=== PATIENT | female | born 1970 | race Asian ===

== ENCOUNTER 2024-04-04 13:11 | Outpatient (AMB) | payer OTHER, SELFPAY ==
--- NOTE | 2024-04-04 13:32 | HO.SPINEOV ---
Vital Signs 04/04/24 13:33 Height 5 ft 1 in Weight 144 lb BMI 27.2 Intake Visit Reasons: Neck pain Intake Note: Ms. Hernandez is here today c/o neck pain that radiates to the arms. Jewel Diameter Gauger Required: No Allergies erythromycin base Allergy (Mild, Verified 04/04/24 13:34) gastritis Physical Exam Vital Signs: BMI result Body Mass Index 27.2 Assessment & Plan Assessment & Plan (1) Cervical radiculopathy due to degenerative joint disease of spine: Code(s): M47.22 - Other spondylosis with radiculopathy, cervical region Category: Medical (2) Lumbar degenerative disc disease: Code(s): M51.369 - Other intervertebral disc degeneration, lumbar region without mention of lumbar back pain or lower extremity pain Category: Medical Plan Dear colleague Thank you for referring Priti Hernandez to the office today with a chief complaint of left-sided neck pain and arm pain and chronic low back pain with bilateral leg pain, right more than left HPI: This 53-year-old female has a 1 year history of severe neck pain mostly towards the left side. Pain wraps around her left chest and shoulder blade. Intermittently it will go down her arm all the way into her hands into the 4th and 5th digit. Recently she noted difficulty with opening bottles and at night she is walking up with numbness in her fingers. She does have a history of carpal tunnel release. She tried physical therapy chiropractic therapy injections without success. In fact, she is still doing physical therapy but it only has a very short lasting result. A 2nd complaint is severe chronic low back pain that radiates down both legs with the right side is more affected than the left side. The pain is severe with standing and sitting. 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 She also had tried multiple injections in the lower back without success. The pain has caused depressive symptoms as expected PMH: Hypertension, asthma, depression, gastric bypass, for C-sections, appendectomy, carpal tunnel release, breast repair Medications: Losartan, Advair, Lexapro, Wellbutrin, amlodipine, simvastatin, triamcinolone, famotidine, Singulair, ibuprofen, gabapentin Allergies: Erythromycin Social history: Currently not working. Nonsmoker. Physical Exam: Pleasant female. Spurling test provide pain radiating down both sides of her neck. Tinel over risk guess tingling in the middle finger. Motor exam shows mild weakness of the biceps grade 4 +out of 5 and a grade 4/5 bank boss weakness bilaterally. No pathological reflexes. Radiological Studies: MRI of the cervical and lumbar spine done at [facility] shows severe cervical degenerative disc disease C5-6 and C6-7 with severe left C6 foraminal stenosis due to disc osteophyte and severe bilateral C7 foraminal stenosis due to osteophyte formation. In addition there is a cervical kyphosis. The lumbar spine shows severe lumbar degenerative disc disease L4-5 with a near collapse of the disc space and Modic changes. In addition there is a bilateral L4 foraminal stenosis. Impression/Plan: This patient is suffering from a cervical radiculopathy for which I recommended an anterior diskectomy and fusion C5-6 and C6-7. There is a remote chance that she is also suffering from carpal tunnel syndrome but this will not interfere with a surgical indication. We briefly discussed an artificial disc these levels but looking at the deformity in the moderate degenerative changes I think she is not a good candidate. As far as a lumbar spine concerns, I offered her an oblique lumbar interbody fusion L4-5 to treat her chronic low back pain radiating down both legs. She wants to proceed. She scheduled for June to undergo 1st the two-level cervical fusion followed by a lumbar fusion 3 weeks later. Thank you for allowing me to participate in your patients care. total time spent was 50 minutes in counseling ,coordination of plan, personal review of imaging, surgical decision making and subsequent plan Dilan Albrecht MD, PhD Spine Fellowship Trained Neurosurgeon Director, [facility] Coding Level of Care Code New Pt Level 4 (44589) Diagnoses Cervical radiculopathy due to degenerative joint disease of spine M47.22 Lumbar degenerative disc disease M51.369
[2024-04-04 13:33] VITALS: BMI 27.2
== END 2024-04-04 15:03 | disposition home or self-care (01) ==
PROVIDERS: Referring Provider Physical Medicine & Rehabilitation; Visit Provider Neurological Surgery
DX: M47.22 Other spondylosis with radiculopathy, cervical region (principal); M51.369 Other intervertebral disc degeneration, lumbar region without mention of lumbar back pain or lower extremity pain
CPT/HCPCS: 99204

== ENCOUNTER → 2024-04-04 13:11 | Outpatient (BNVA) | payer OTHER, SELFPAY | PROVIDERS: Referring Provider Physical Medicine & Rehabilitation; Visit Provider Neurological Surgery | DX: M47.22 Other spondylosis with radiculopathy, cervical region (principal); M51.369 Other intervertebral disc degeneration, lumbar region without mention of lumbar back pain or lower extremity pain | CPT/HCPCS: 99202 ==

== ENCOUNTER 2024-05-13 15:41 | Outpatient (REF) | payer OTHER, SELFPAY ==
--- OUTSIDE RECORDS SUMMARY | 2024-05-13 16:28 | XMS_ITS | Clinical Summary ---
Author Organization [facility] Address [address] [place] [id number] Care Team Providers Care Souvenir And Novelty Maker Name Role Phone Unavailable Primary Care Provider Unavailabl e Allergies Active Allergy Reactions Criticality Noted Date Comments Erythromycin Nausea Only 08/09/2020 Nickel 08/09/2020 Medications Medication Sig Dispensed Refills Start Date End Date Status escitalopram (LEXAPRO) 20 MG tablet Take 20 mg by mouth daily. 0 Active amLODIPine (NORVASC) tablet 2.5 mg Take 2.5 mg by mouth daily. 0 Active losartan (COZAAR) tablet 25 mg Take 25 mg by mouth daily. 0 Active hydroCHLOROthiazide (HYDRODIURIL) tablet 25 mg Take 25 mg by mouth daily. 0 Active fenofibrate (TRICOR) tablet 48 mg Take 48 mg by mouth daily. 0 Active simvastatin (ZOCOR) tablet 10 mg Take 10 mg by mouth every night at bedtime. 0 Active ibuprofen 600 MG tablet Take 600 mg by mouth every 6 (six) hours as needed for pain. 0 Active Acetaminophen 500 MG coapsule Take 1,000 mg by mouth every 6 (six) hours as needed for fever. 0 Active meloxicam (MOBIC) 7.5 MG tablet TAKE 1 TABLET NEEDED FOR PAIN, IF NEEDED CAN TAKE SECOND TABLET 12 HOURS AFTER. 60 tablet 1 02/10/2021 Active tiZANidine (ZANAFLEX) 4 MG tablet TAKE 1 TABLET BY MOUTH EVERY 6 HOURS NEEDED FOR MUSCLE SPASMS 60 tablet 0 06/08/2021 Active Active Problems Problem Noted Date Diagnosed Date Sacroiliac joint dysfunction 08/11/2020 Lumbar facet joint syndrome 08/11/2020 Social History Tobacco Use Types Packs/Day Years Used Date Smoking Tobacco: Never Smokeless Tobacco: Never Alcohol Use Standard Drinks/Week Comments Never 0 (1 standard drink = 0.6 oz pur e alcohol) Sex and Gender Information Value Date Recorded Sex Assigned at Not on file Gender Identity Not on file Sexual Orientation Not on file Job Start Date Occupation Industry Not on file Not on file Not on file Last Filed Vital Signs Vital Sign Reading Time Taken Comments Blood Pressure - - Pulse 85 08/11/2020 2:24 PM EDT Temperature - - Respiratory Rate - - Oxygen Saturation 98% 08/11/2020 2:24 PM EDT Inhaled Oxygen Concentration - - Weight 84.8 kg (187 lb) 08/09/2020 2:48 PM EDT Height 154.9 cm (5' 1 ) 08/09/2020 2:48 PM EDT Body Mass Index 35.33 08/09/2020 2:48 PM EDT Plan of Treatment Health Maintenance Due Date Last Done Comments Hepatitis B Vaccines (1 of 3 - 3-dose series) 1972 Hepatitis C Screening 1972 Depression Screening 1984 Preventative Health Evaluation 1990 DTap / Tdap / Td (1 - Tdap) 12/26/1991 Cervical Cancer Screening (P ap Smear) 1993 Colon Cancer Screening (Colonoscopy) 2017 Breast Cancer Screening (Mammogram) 2022 Shingrix-Zoster Vaccine (1 of 2) 2022 COVID-19 Vaccine (2 - 2023-2 5 season) 2023 04/30/2020 Influenza Vaccine (#1) 2023 Pneumococcal Vaccine Aged Out No long er eligible based on patient's age to complete this topic RSV Ped < 20 months Aged Out No longe r eligible based on patient's age to complete this topic
--- OUTSIDE RECORDS SUMMARY | 2024-05-13 16:28 | XMS_ITS | Encounter Summary ---
Author Organization [facility] Address [id number] [place] [id number] Care Team Providers Care Unit Receptionist Name Role Phone Maria Dolores Jones MD Primary Care Provider Reason for Visit * Consultation (Routine) - Authorized Specialty Diagnoses / Procedures Referred By Ganesh rea Referred To Contact Physical Therapy Diagnoses Bursitis of left shoulder Laz Lunsford, TED [address] [place] [address] [facility] Physical Therapy [address] [phone] Referral ID Status Reason Start Date Expiration Date Visits Requested Visits Authorized [id number] Authorized Specialty Services Required 01/16/2024 01/15/2025 16 16 Encounter Details Date Type Department Care Team (Late st Contact Info) Description 04/21/2024 8:00 AM EST Treatment [facility] [address] [phone] Kayce Walker PT Bursitis of left shoulder (Primary Dx); Upper back strain, subsequent encounter Social History Tobacco Use Types Packs/Day Years Used Date Smoking Tobacco: Never Smokeless Tobacco: Never Alcohol Use Standard Drinks/Week Comments Yes 0 (1 standard drink = 0.6 oz pur e alcohol) Sex and Gender Information Value Date Recorded Sex Assigned at Female 03/21/2023 3:09 PM EST Gender Identity Female 03/21/2023 3:09 PM EST Sexual Orientation Straight 02/26/2024 2: 42 PM EST Job Start Date Occupation Industry Not on file Not on file Not on file documented as of this encounter Progress Notes * Kayce Moskal, PT - 04/21/2024 8:00 AM EST [facility] - Outpatient PHYSICAL THERAPY DAILY TREATMENT NOTE - OP Date: 04/21/2024 Visit Number: [id number] Patient Name: Priti Hernandez : 1970 Age: 53 y.o. Gender: female Diagnosis: ICD-10-CM ICD-9-CM 1. Bursitis of left shoulder M75.52 726.10 2. Upper back strain, subsequent encounter S29.012D V58.89 847.1 Date of Onset/Surgery: 01/16/2024 Referring Provider: Laz Lunsford PA Insurance: Payor: [employer] / Plan: [employer] MEDICAID / Product Type: *No Product type* / Patient Identified by: Kayce Walker PT Language: Panamanian Medications: Current Outpatient Medications on File Prior to Visit Medication Sig Dispense Refill acetaminophen (TYLENOL) 500 mg tablet TAKE 1 TABLET BY MOUTH EVERY 6 HOURS NEEDED FOR MILD PAIN SCALE 1-3 albuterol HFA (PROAIR HFA ; PROVENTIL HFA ; VENTOLIN HFA) 90 mcg/actuation inhaler Inhale 2 Puffs into the lungs every 6 hours as needed for Cough, Wheezing or Shortness of Breath. amLODIPine (NORVASC) 5 mg tablet Take 1 tablet (5 mg total) by mouth 1 (one) time each day. buPROPion SR (WELLBUTRIN SR) 150 mg 12 hr tablet Take 1 tablet (150 mg total) by mouth 1 (one) timeeach day. [id number] ORAL Take by mouth. 2 tablets bid cyclobenzaprine (FLEXERIL) 5 mg tablet TAKE 1 TABLET BY MOUTH EVERY DAY AT BEDTIME escitalopram (LEXAPRO) 20 mg tablet TAKE 1 TABLET BY MOUTH EVERY DAY 90 tablet 0 estradiol (ESTRACE ORAL) Take daily famotidine (PEPCID) 20 mg tablet Take 1 tablet (20 mg total) by mouth 2 (two) times a day. fexofenadine (HEATHER) 180 mg tablet Take 1 tablet (180 mg total) by mouth 1 (one) time each day. fish oil/borage/flax/om3,6,9 1 (OMEGA 3-6-9 ORAL) Take by mouth. fluticasone propion-salmeteroL (ADVAIR HFA) 230-21 mcg/actuation inhaler Inhale 2 Puffs into the lungs 2 times daily. This medication has inhaler steroid: Rinse mouth with water and expectorate aftereach dose to prevent oral/esophageal candidiasis or fungal infection. gabapentin (NEURONTIN) 100 mg capsule Take 100mg in Am , 200mg at noon and 300mg at bedtime- per . inhalational spacing device (BreatheRite Valved MDI Chamber) inhaler 1 Each by Does not apply routeas needed for Other (with inhalers). inhaler, assist devices (E-Z SPACER MISC) USE NEEDED WITH INHALERS Lactobacillus rhamnosus GG (CULTURELLE ORAL) Take 1 Tablet by mouth daily levonorgestreL (MIRENA) 21 mcg/24 hr (8 yrs) 52 mg IUD 1 Each by Intrauterine route Once. (Patient not taking: Reported on 03/25/2024) losartan (COZAAR) 50 mg tablet Take 1 tablet (50 mg total) by mouth 2 (two) times a day. melatonin 3 mg tablet Take 1 Tablet by mouth at bedtime. meloxicam (MOBIC) 15 mg tablet TAKE 1 TABLET BY MOUTH EVERY DAY montelukast (SINGULAIR) 10 mg tablet Take 1 Tablet by mouth at bedtime. multivit-min/iron/folic acid/K (BARIATRIC MULTIVITAMINS ORAL) Take by mouth daily. pantoprazole (PROTONIX) 40 mg EC tablet Take 1 tablet (40 mg total) by mouth 1 (one) time each day. simvastatin (ZOCOR) 10 mg tablet Take 1 Tablet by mouth at bedtime. traZODone (DESYREL) 50 mg tablet Take 1 Tablet by mouth at bedtime. triamcinolone (NASACORT) 55 mcg nasal inhaler 55 mcg by Nasal route daily. No current facility-administered medications on file prior to visit. Allergies: is allergic to erythromycin, nickel, other, shellfish containing products, shrimp, and tizanidine. Fall risk: No Patient/Caregiver Goals: SUBJECTIVE Subjective Report: The patient reports her low back is sore today but with treatment symptoms have reduced for longer periods of time. Chart Reviewed: Yes Pain Low back: 4/10 achy pain OBJECTIVE TREATMENT INTERVENTION: Procedures: Manual Therapy interventions: Dry needling - direct with STIM to lumbar multifidi and bilateral QL x 5 min no charge STM to erector spinae, QL and lumbar multifidi ASSESSMENT/Response to Treatment Good The patient tolerated manual therapy interventions well with improved myofascial mobility and reduced trigger points. She was instructed to continue with core stability exercises at home and neck stretches. Patient Education: Education provided: Yes Education Provided To: Patient utilizing Explanation mode(s) of education Response to Education: Applied Knowledge PLAN POC Development/Review: No Change in the Plan of Care; Participants: Patient Total Treatment Time: 25 Therapeutic procedures: Manual Therapy Time Entry: 25 Documentation completed by Kayce Walker PT documented in this encounter Plan of Treatment Upcoming Encounters Date Type Department Care Team (Late st Contact Info) Description 05/19/2024 8:00 AM EST Treatment [facility] [address] [phone] Kayce Walker, PT 05/26/2024 8:00 AM EST Treatment [facility] [address] [phone] Kayce Walker, PT 06/09/2024 8:00 AM EST Treatment [facility] [address] [phone] Kayce Walker, PT 06/16/2024 8:00 AM EST Treatment [facility] [address] [phone] Kayce Walker, PT 07/08/2024 8:30 AM EDT Office Visit Pulmonolgy [facility] [address] [phone] Archana Woods NP [address] [address] 09/26/2024 11:10 AM EDT Appointment Radiology Department - [address] [phone] 10/29/2024 8:00 AM EDT Office Visit Gastroenterology - [place] 175 [facility] 175 [facility] [address] [place] [id number] Yamilka Brice, GEOFF 175 [facility] [address] [place] [address] documented as of this encounter Goals Goal Patient Goal Type Associated Problems Recent Progress Patient-Stated? Author <enter goal here> General No Kayce Walker, PT Note: Patient reports subjective decrease in L shoulder blade pain Slight trigger point to L rhomboid and L erector spinae Slight myofascial mobility restriction to bilateral erector spinae Normal PA thoracic joint mobility Patient is independent and compliant with HEP documented as of this encounter Visit Diagnoses Diagnosis Bursitis of left shoulder- Primary Upper back strain, subsequent encounter Encounter for screening mammogram for breast cancer documented in this encounter Care Teams Unit Receptionist Relationship Specialty Start Date End Date Maria Dolores Jones MD [address] [place] [address] [address] [place] [address] PCP - General Internal Medicine 12/13/21 documented as of this encounter
--- OUTSIDE RECORDS SUMMARY | 2024-05-13 16:28 | XMS_ITS | Clinical Summary ---
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 03/25/2024 7:05 PM [facility] Chloride 105 96 - 110 mmol/L LAB CHEMISTRY METHOD 03/25/2024 7:05 PM [facility] CO2 29 21 - 32 mmol/L LAB CHEMISTRY METHOD 03/25/2024 7:05 PM [facility] Anion Gap 6 3 - 11 LAB CHEMISTRY METHOD 03/25/2024 7:05 PM [facility] Glucose 117(H) 70 - 100 mg/dL LAB CHEMISTRY METHOD 03/25/2024 7:05 PM [facility] BUN 15 5 - 25 mg/dL LAB CHEMISTRY METHOD 03/25/2024 7:05 PM [facility] Creatinine 0.76 0.50 - 1.10 mg/dL LAB CHEMISTRY METHOD 03/25/2024 7:05 PM [facility] eGFR 95 >=60 mL/min/1. 73m2 LAB CHEMISTRY METHOD 03/25/2024 7:05 PM [facility] Comment:Calculation based on the??Chronic Kidney Disease Epidemiology Collaboration (CKD-EPI) equation refit??without adjustment for race. BUN/Creatinine Ratio 19.7 LAB CHEMISTRY METHOD 03/25/2024 7:05 PM [facility] Calcium 9.3 8.5 - 10.5 mg/dL LAB CHEMISTRY METHOD 03/25/2024 7:05 PM [facility] AST (SGOT) 19 10 - 42 unit/L LAB CHEMISTRY METHOD 03/25/2024 7:05 PM [facility] ALT (SGPT) 33 10 - 60 unit/L LAB CHEMISTRY METHOD 03/25/2024 7:05 PM [facility] Alkaline Phosphatase 73 42 - 121 unit/L LAB CHEMISTRY METHOD 03/25/2024 7:05 PM [facility] Total Protein 7.4 6.0 - 8.0 g/dL LAB CHEMISTRY METHOD 03/25/2024 7:05 PM [facility] Albumin 4.1 3.2 - 5.0 g/dL LAB CHEMISTRY METHOD 03/25/2024 7:05 PM EST [facility] Total Bilirubin 0.4 0.0 - 1.4 mg/dL LAB CHEMISTRY METHOD 03/25/2024 7:05 PM EST [facility] Blood Venous blood specimen / Unknown Venipuncture / Unknown 03/25/2024 11:54 AM EST 03/25/2024 11:54 AM EST Mike JEAN LAB BLOOD ORDERABLES [facility] [address] [place] [address], * Depression Screening (01/05/2024) Depression Screening abstracted Historical Provider [facility] * HIV Screening (12/06/2023) HIV Screening abstracted Historical Provider [facility] * Hepatitis C Screening (12/06/2023) Hepatitis C Screening abstracted Historical Provider [facility] * SCREENING MAMMOGRAPHY BI 2-VIEW BREAST INC CAD (09/18/2023 1:26 PM EDT) Anatomical Region Laterality Modality Radiographic Alysha ging 09/07/2022 1:08 PM EDT Narrative 09/19/2023 9:13 AM EDT This is a summary report. The complete report is available in the patient's medical record. If you cannot access the medical record, please contact the sending organization for a detailed fax or copy. History: Status post excisional biopsy of right breast calcifications on November 30, 2021, with benign results. Study: SCREENING MAMMOGRAPHY BI 2-VIEW BREAST INC CAD Technique: Bilateral full-field digital screening mammography is obtained and read in conjunction with computer aided detection. ??Tomosynthesis as well as 2D C-View imaging were obtained. ??Images with implants and displaced implant views were obtained. Comparison: Comparison made to multiple prior, most recent September 07, 2022, and most remote October 22, 2017. Breast composition: There are scattered areas of fibroglandular density. Right breast: Status post excisional biopsy. ??Retropectoral saline implant is intact. ??No suspicious masses, suspicious calcifications or other abnormalities are seen. Left breast: Retropectoral saline implant is intact. Interval coarsening of grouped calcifications in the upper outer quadrant anterior depth, which have similar appearance to the ones excised on the contralateral breast. ??No suspicious masses, suspicious calcifications or other abnormalities are seen. IMPRESSION: Impression: Bilateral breasts: Benign, no specific mammographic evidence of malignancy. ??Normal interval follow-up is recommended in 12 months. BI-RADS: Category 2: Benign Procedure Note Rachel Ward MD - 01/30/2024 This is a summary report. The complete report is available in thepatient's medical record. If you cannot access the medical record, pleasecontact the sending organization for a detailed fax or copy. History: [facility]. Study: SCREENING MAMMOGRAPHY BI 2-VIEW BREAST INC CAD Technique: Bilateral full-field digital screening mammography is obtainedand read in conjunction with computer aided detection. Tomosynthesis aswell as 2D C-View imaging were obtained. Images with implants anddisplaced implant views were obtained. Comparison: Comparison made to multiple prior, most recent September 07, 2022,and most remote October 22, 2017. Breast composition: There are scattered areas of fibroglandular density. Right breast: Status post excisional biopsy. Retropectoral saline implantis intact. No suspicious masses, suspicious calcifications or otherabnormalities are seen. Left breast: Retropectoral saline implant is intact. Interval coarseningof grouped calcifications in the upper outer quadrant anterior depth,which have similar appearance to the ones excised on the contralateralbreast. No suspicious masses, suspicious calcifications or otherabnormalities are seen. IMPRESSION: Impression: Bilateral breasts: Benign, no specific mammographic evidence ofmalignancy. Normal interval follow-up is recommended in 12 months. BI-RADS: Category 2: Benign Maria Dolores Jones MD IMG XR PROCEDU RES * Urine Albumin Creatinine Ratio (05/03/2023) Urine Albumin Creatinine Ratio abstracted Historical Provider MD ANTONIO MCCARTNEY E * Colonoscopy (07/13/2022) Colonoscopy no interpretation , abstracted Anatomical Region Laterality Modality Other Historical Provider MD ANOTNIO MCCARTNEY E * Cervical Cancer Screening: HPV (08/15/2021) Pathologist [facility] Cervical Cancer Screening: HPV no interpretation , abstracted Historical Provider MD ANTONIO Adler from Last 3 Months or Most Recently Relevant to Health Maintenance Care Teams [employer] Relationship Specialty Start Date End Date Maria Dolores Jones MD [address] [place] [id number] PCP - General Internal Medicine 12/13/21
--- OUTSIDE RECORDS SUMMARY | 2024-05-13 16:28 | XMS_ITS | Encounter Summary ---
Author Organization [facility] Address [address] [place] [phone] Care Team Providers Care Operator Catalyst Concentration Name Role Phone Maria Dolores Jones MD Primary Care Provider Reason for Visit * Consultation (Routine) - Authorized Specialty Diagnoses / Procedures Referred By Ganesh rea Referred To Contact Physical Therapy Diagnoses Bursitis of left shoulder Laz Lunsford, PA [address] [place] [address] [facility] Physical Therapy [address] [phone] Referral ID Status Reason Start Date Expiration Date Visits Requested Visits Authorized [id number] Authorized Specialty Services Required 01/16/2024 01/15/2025 16 16 Encounter Details Date Type Department Care Team (Late st Contact Info) Description 04/14/2024 8:00 AM EST Treatment [facility] [address] [phone] Kayce Walker PT Bursitis of left shoulder (Primary Dx) Social History Tobacco Use Types Packs/Day Years [...] of this encounter Progress Notes * Kayce Walker PT - 04/14/2024 8:00 AM EST [facility] - Outpatient PHYSICAL THERAPY DAILY TREATMENT NOTE - OP Date: 04/14/2024 Visit Number: [id number] Patient Name: Priti Hernandez : 1970 Age: 53 y.o. Gender: female Diagnosis: ICD-10-CM ICD-9-CM 1. Bursitis of left shoulder M75.52 726.10 Date of Onset/Surgery: 01/16/2024 Referring Provider: Laz Lunsford PA Insurance: Payor: [employer] PLAN / Plan: [employer] MEDICA[employer] / Product Type: *No Product type* / Patient Identified by: Kayce Walker PT Language: Iraqi Medications: Current Outpatient Medications on File Prior [...] total) by mouth 1 (one) timeeach day. [id number] ORAL Take by mouth. 2 tablets bid [...] patient reports her low back is sore today. She reports she has had pain in low back for the last few days. Chart Reviewed: Yes Pain neck: 4/10 achy pain OBJECTIVE TREATMENT INTERVENTION: Procedures: Manual Therapy interventions: Dry needling - direct with STIM to lumbar multifidi and bilateral QL x 5 min no charge STM to erector spinae, QL and lumbar multifidi ASSESSMENT/Response to Treatment Good The patient was instructed to continue with stretches at home. She continues to have myofascial restrictions that reduced with manual therapy interventions. She had improved mobility following manual therapy interventions. Patient Education: Education provided: Yes Education Provided To: Patient utilizing Explanation mode(s) of education Response to Education: Applied Knowledge PLAN POC Development/Review: No Change in the Plan of Care; Participants: Patient Total Treatment Time: 23 Therapeutic procedures: Manual Therapy Time Entry: 23 Documentation completed by Kayce Walker PT documented in this encounter Plan of Treatment Upcoming Encounters Date Type Department Care Team (Late st Contact Info) Description 05/19/2024 8:00 AM EST Treatment [facility] [address] [phone] Kayce Walker, PT 05/26/2024 8:00 AM EST Treatment [facility] [address] [phone] Kayce Walker, PT 06/09/2024 8:00 AM EST Treatment [facility] [address] [phone] Kayce Walker, PT 06/16/2024 8:00 AM EST Treatment [facility] [address] [phone] Kayce Walker, PT 07/08/2024 8:30 AM EDT Office Visit [place]monolgy [place] [address] [phone] Archana Woods NP [address] [address] 09/26/2024 11:10 AM EDT Appointment Radiology Department [address] [phone] 10/29/2024 8:00 AM EDT Office Visit Gastroenterology - [place] 175 [facility] 175 [facility] [address] [place] [address] Yamilka Brice NP 175 [facility] [address] [place] [address] documented as of this encounter Goals Goal [...] Diagnoses Diagnosis Bursitis of left shoulder- Primary Encounter for screening mammogram for breast cancer documented in this encounter Care Teams Operator Catalyst Concentration Relationship Specialty Start Date End Date Maria Dolores Jones MD [address] [place] [address] [address] [place] [address] PCP - General Internal Medicine 12/13/21 documented as of this encounter
--- OUTSIDE RECORDS SUMMARY | 2024-05-13 16:28 | XMS_ITS | Encounter Summary ---
Author Organization [facility] Address [address] [place] [address] Care Team Providers Care [employer] Name Role Phone Maria Dolores Jones MD Primary Care Provider Reason for Visit * Reason Comments GERD * Consultation (Routine) - Closed Specialty Diagnoses / Procedures Referred By Contact Referred To Contact Gastroenterology Diagnoses DM (diabetes mellitus), type 2 with neurological complications (CMS/HCC) Primary hypertension Hypercholesterolemia Moderate persistent asthma without complication Obstructive sleep apnea hypopnea, mild Gastroesophageal reflux disease, unspecified whether esophagitis present Mike Pagan PA [address] [place] [address] [facility] [address] [address] Referral ID Status Reason Start Date Expiration Date V isits Requested Visits Authorized [id number] Closed Specialty Services Required 03/25/2024 03/25/2025 1 1 Encounter Details Date Type Department Care Team ([facility] st Contact Info) Description 05/01/2024 8:00 AM EST Consult Gastroenterology - [place] 175 [place] [address] [address] Yamilka Brice NP [address] [address] Gastroesophageal reflux disease, unspecified whether esophagitis present (Primary Dx); Lactose intolerance; Bariatric surgery status Social History Tobacco Use Types Packs/Day Years [...] on file documented as of this encounter Last Filed Vital Signs Vital Sign Reading Time Taken Comments Blood Pressure 122/80 05/01/2024 8:03 AM EST Pulse 77 05/01/2024 8:03 AM EST Temperature - - Respiratory Rate - - Oxygen Saturation 98% 05/01/2024 8:03 AM EST Inhaled Oxygen Concentration - - Weight 67.1 kg (148 lb) 05/01/2024 8:03 AM EST Height 154.9 cm (5' 1 ) 05/01/2024 8:03 AM EST Body Mass Index 27.96 05/01/2024 8:03 AM EST documented in this encounter Progress Notes * Yamilka Brice NP - 05/01/2024 8:00 AM EST CONSULT REQUEST CHIEF COMPLAINT: GERD HPI: Priti Hernandez is a 53 y.o. old female whose PMH includes abnormal mammogram, adjustment disorder with mixed anxiety and depressed mood, allergic conjunctivitis of both eyes, carpal tunnel syndrome, type 2 diabetes mellitus, eating disorder, hypertension, hypercholesterolemia, migraines, moderate pe rsistent asthma, obstructive sleep apnea, posttraumatic headache, recurrent sinusitis, spina bifidaof lumbar region and umbilical hernia without obstruction and without gangrene was referred by Mike Pagan PA presents to the gastroenterology department today for evaluation of GERD. Patient reports historical gastric bypass surgery in February 2021 with a complication of intussusception afterwards. She notes since gastric bypass surgery, she has developed significant GERD that is well-managed with pantoprazole and famotidine. Sometimes, she experiences sharp pains when hungry-pain subsides with food. She occasionally experiences some dull pain after food. She does not eat heavy meals. She eats small meals throughout the day and uses protein supplements. She is lactose intolerant and uses Lactaid pills. She reports associated bloating and gassiness. She endorses she does not follow antireflux diet. During this visit, she denies fever or malaise, nausea, vomiting, dysphagia, odynophagia, hematemesis, abdominal pain, regurgitation, loss of appetite, unintentional weightloss, change in bowel habits from baseline, melena or hematochezia. She denies tobacco or marijuanause. She endorses occasional social alcohol use. No family history of colon cancer. Colonoscopy 07/03/2022: Internal hemorrhoids. The examination was otherwise normal. No specimens collected. No historical EGD. ROS: GENERAL: No malaise, significant weight loss or fever HEENT: No changes in hearing or vision, nose bleeds or swallowing problems NECK: No lumps, goiter, pain or significant neck swelling RESPIRATORY: No cough, wheezing or shortness of breath CARDIOVASCULAR: No chest pain GI: See HPI MUSCULOSKELETAL: Chronic back pain SKIN: No lesions, rash or itching PAST MEDICAL HISTORY: Patient Active Problem List Diagnosis Abnormal mammogram Adjustment disorder with mixed anxiety and depressed mood Allergic conjunctivitis of both eyes Allergic rhinitis Carpal tunnel syndrome DM (diabetes mellitus), type 2 with neurological complications (CMS/HCC) Eating disorder, unspecified Elevated glucose Facet arthropathy, lumbar Hypertension Hypercholesterolemia Migraines Moderate persistent asthma without complication Obstructive sleep apnea hypopnea, mild Palpitations Post-traumatic headache, not intractable Recurrent sinusitis Spina bifida of lumbar region (CMS/HCC) Sprain of lumbosacral joint or ligament Umbilical hernia without obstruction and without gangrene Hypertriglyceridemia Class 1 obesity due to excess calories with serious comorbidity and body mass index (BMI) of 30.0 to 30.9 in adult Lumbar facet joint syndrome Sacroiliac joint dysfunction PAST SURGICAL HISTORY: Past Surgical History: Procedure Laterality Date APPENDECTOMY 2000 PROCEDURE: HISTORICAL APPENDECTOMY BREAST SURGERY 2003 PROCEDURE: RI UNLISTED PROCEDURE BREAST; COMMENT: Augmentation CARPAL TUNNEL RELEASE Bilateral PROCEDURE: RI NEUROPLASTY &/TRANSPOS MEDIAN NRV CARPAL TUNNE SECTION 2005, 1998, 2012 PROCEDURE: HISTORICAL DELIVERY GASTRIC BYPASS 02/2021 PROCEDURE: RI GASTRIC RSTCV W/BYP W/SM INT RCNSTJ LIMIT ABSRPJ OTHER SURGICAL HISTORY 08/2015 PROCEDURE: HISTORY OTHER; COMMENT: abdominoplasty OTHER SURGICAL HISTORY Bilateral PROCEDURE: IMPLANT BREAST SILICONE/EQ; COMMENT: saline retropec OTHER SURGICAL HISTORY Right 11/30/2021 PROCEDURE: RI EXC BREAST LES PREOP PLMT RAD MARKER OPEN 1 LES; COMMENT: Right breast magnetic seed localized excision SOCIAL HISTORY: Social History Tobacco Use Smoking status: Never Smokeless tobacco: Never Substance Use Topics Alcohol use: Yes Drug use: No FAMILY HISTORY: Family History Problem Relation Name Age of Onset Hypertension Mother diabetes Diabetes Mother Depression Mother Leukemia Mother Hypertension Father DM, [place] age mid 50s, ESRD, Glaucoma, kidney transplant, depression Diabetes Father Other (Other: heart attack) Father Breast cancer Neg Hx Ovarian cancer Neg Hx Colon cancer Neg Hx MEDICATIONS: Outpatient Medications Marked as Taking for the 05/01/24 encounter (Consult) with Yamilka Brice NP Medication Sig Dispense Refill acetaminophen (TYLENOL) 500 [...] total) by mouth 1 (one) timeeach day. [id number] ORAL Take by mouth. 2 tablets bid cyclobenzaprine (FLEXERIL) 5 mg tablet TAKE 1 TABLET BY MOUTH EVERY DAY AT BEDTIME escitalopram (LEXAPRO) 20 mg tablet TAKE 1 TABLET BY MOUTH EVERY DAY 90 tablet 0 estradiol (ESTRACE ORAL) Take daily famotidine (PEPCID) 20 mg tablet TAKE 1 TABLET BY MOUTH TWICE A DAY 180 tablet 1 fexofenadine (HEATHER) 180 mg tablet Take 1 [...] mcg/24 hr (8 yrs) 52 mg IUD losartan (COZAAR) 50 mg tablet Take 1 [...] inhaler 55 mcg by Nasal route daily. ALLERGIES: Allergies Allergen Reactions Erythromycin GI intolerance Nickel Other Nickel-Other Reaction(s): Rash/Dermatitis Shellfish Containing Products Hives allergy Shrimp Other reaction(s): rash and swollen lips, Shrimp allergy ... Tizanidine Hallucinations PHYSICAL EXAM: Visit Vitals BP 122/80 Pulse 77 Ht 1.549 m (61 ) Wt 67.1 kg (148 lb) SpO2 98% BMI 27.96 kg/m?? OB Status Postmenopausal Smoking Status Never BSA 1.66 m?? APPEARANCE: Alert and in no acute distress EYES: Conjunctiva and sclera normal. MOUTH/THROAT: No erythema, exudates or lesions noted NECK: Neck supple, no adenopathy HEART: RRR with normal S1 and S2 LUNG: Clear to auscultation ABDOMEN: Soft non tender, no ascites, guarding, or rebound. RECTAL: Exam deferred NEURO: Awake, alert and oriented x 3 SKIN: Skin color, texture, turgor normal. LABS: No results found for: WBC , HGB , HCT , MCV , PLT Lab Results Component Value Date ALT 33 03/25/2024 AST 19 03/25/2024 ALKPHOS 73 03/25/2024 BILITOT 0.4 03/25/2024 IMAGING: No results found for this or any previous visit from the past 365 days. IMPRESSION: 1. Gastroesophageal reflux disease, unspecified whether esophagitis present 2. Lactose intolerance PLAN: Priti Hernandez is a 53 y.o. old female whose PMH includes abnormal mammogram, adjustment disorder with mixed anxiety and depressed mood, allergic conjunctivitis of both eyes, carpal tunnel syndrome, type 2 diabetes mellitus, eating disorder, hypertension, hypercholesterolemia, migraines, moderate pe rsistent asthma, obstructive sleep apnea, posttraumatic headache, recurrent sinusitis, spina bifidaof lumbar region and umbilical hernia without obstruction and without gangrene presents for evaluation of GERD. 1. GERD: Chronic since bariatric surgery in 2020. She takes pantoprazole and famotidine daily. This patient will greatly benefit from following antireflux diet which will include elimination of spicy, greasy/fatty, acidic/red sauces and caffeine especially coffee. Avoid late night eating and elevate head ofbed when sleeping. Continue taking PPI and famotidine as directed. She was encouraged to maximize lifestyle and dietary changes. I will re-evaluate in 6 months. If persistent GERD despite these changes, I will consider EGD. 2. Lactose intolerance: She was encouraged to follow a dairy free diet. May use Lactaid/dairy aid as needed. 3. Bariatric surgery status: History of bariatric surgery February 2021. Follow-up in 6 months. Patient agrees with the above plan and understands the need to follow up as indicated. Please note, this note may have been created in part by using Tapat[employer] dictation software, and therefore, it may contain typographical and/or grammatical errors inherent in a voice recognition software program I would like to thank Mike Pagan PA for the opportunity to partake in the patient's care. No orders of the defined types were placed in this encounter. AMB REFERRAL TO GASTROENTEROLOGY documented in this encounter Plan of Treatment Upcoming Encounters Date Type Department Care Team (Late st Contact Info) Description 05/19/2024 8:00 AM EST Treatment [facility] [address] [phone] Kayce Walker, PT 05/26/2024 8:00 AM EST Treatment [facility] [address] [phone] Kayce Walker, PT 06/09/2024 8:00 AM EST Treatment [facility] [address] [phone] Kayce Walker, PT 06/16/2024 8:00 AM EST Treatment [facility] [address] [phone] Kayce Walker, PT 07/08/2024 8:30 AM EDT Office Visit Pulmonolgy - [address] [phone] Archana Woods NP [address] [address] 09/26/2024 11:10 AM EDT Appointment Radiology Department [address] [phone] 10/29/2024 8:00 AM EDT Office Visit Gastroenterology - [place] [address] [phone] Yamilka Brice, GEOFF [address] [address] documented as of this encounter Goals Goal [...] as of this encounter Visit Diagnoses Diagnosis Gastroesophageal reflux disease, unspecified whether esophagitis present- Primary Lactose intolerance Intestinal disaccharidase deficiencies and disaccharide malabsorption Bariatric surgery status Encounter for screening mammogram for breast cancer documented in this encounter Orders Outpatient Referral Count Last Ordered Date Fir st Ordered Date AMB REFERRAL TO GASTROENTEROLOGY 05/01/19 25 documented in this encounter Care Teams [employer] Relationship Specialty Start Date End Date Maria Dolores Jones MD [address] [place] [address] PCP - General Internal Medicine 12/13/21 documented as of this encounter
--- OUTSIDE RECORDS SUMMARY | 2024-05-13 16:29 | XMS_ITS | Encounter Summary ---
Author Organization [facility] Address [address] [place] [phone] Care Team Providers Care Engineer Technician Name Role Phone Maria Dolores Jones MD Primary Care Provider Encounter Details Date Type Department Care Team (Latest Contact Info) Description 04/23/2024 8:22 AM EST - 04/23/2024 11:59 PM EST Hospital Encounter [facility] Paz [address] [place] [phone] Bilateral thumb pain Discharge Disposition: Home or Self Care Social History Tobacco Use Types Packs/Day Years [...] on file documented as of this encounter Medications at Time of Discharge Medication Sig Dispensed Refills Start Date End Date acetaminophen (TYLENOL) 500 mg tablet TAKE 1 TABLET BY MOUTH EVERY 6 HOURS NEEDED FOR MILD PAIN SCALE 1-3 03/07/2022 albuterol HFA (PROAIR HFA ; PROVENTIL HFA ; VENTOLIN HFA) 90 mcg/actuation inhaler Inhale 2 Puffs into the lungs every 6 hours as needed for Cough, Wheezing or Shortness of Breath. 10/29/2023 amLODIPine (NORVASC) 5 mg tablet Take 1 tablet (5 mg total) by mouth 1 (one) time each day. 07/05/2023 buPROPion SR (WELLBUTRIN SR) 150 mg 12 hr tablet Take 1 tablet (150 mg total) by mouth 1 (one) time each day. 05/14/2023 SDOZAOE-YWHBUGGLR-OZKL ORAL Take by mouth. 2 tablets bid cyclobenzaprine (FLEXERIL) 5 mg tablet TAKE 1 TABLET BY MOUTH EVERY DAY AT BEDTIME 09/19/2023 escitalopram (LEXAPRO) 20 mg tablet TAKE 1 TABLET BY MOUTH EVERY DAY 90 tablet 03/20/2024 estradiol (ESTRACE ORAL) Take daily famotidine (PEPCID) 20 mg tablet TAKE 1 TABLET BY MOUTH TWICE A DAY 180 tablet 1 04/22/2024 fexofenadine (HEATHER) 180 mg tablet Take 1 tablet (180 mg total) by mouth 1 (one) time each day. 01/31/2023 fish oil/borage/flax/om3,6, 9 1 (OMEGA 3-6-9 ORAL) Take by mouth. 02/03/2020 fluticasone propion-salmeteroL (ADVAIR HFA) 230-21 mcg/actuation inhaler Inhale 2 Puffs into the lungs 2 times daily. This medication has inhaler steroid: Rinse mouth with water and expectorate after each dose to prevent oral/esophageal candidiasis or fungal infection. 10/29/2023 gabapentin (NEURONTIN) 100 mg capsule Take 100mg in Am , 200mg at noon and 300mg at bedtime- per . 08/30/2023 inhalational spacing device (BreatheRite Valved MDI Chamber) inhaler 1 Each by Does not apply route as needed for Other (with inhalers). 04/26/2022 inhaler, assist devices (E-Z SPACER MISC) USE NEEDED WITH INHALERS 04/26/2022 Lactobacillus rhamnosus GG (CULTURELLE ORAL) Take 1 Tablet by mouth daily levonorgestreL (MIRENA) 21 mcg/24 hr (8 yrs) 52 mg IUD 09/02/2021 08/07/2026 losartan (COZAAR) 50 mg tablet Take 1 tablet (50 mg total) by mouth 2 (two) times a day. 07/05/2023 meloxicam (MOBIC) 15 mg tablet TAKE 1 TABLET BY MOUTH EVERY DAY 07/10/2023 montelukast (SINGULAIR) 10 mg tablet Take 1 Tablet by mouth at bedtime. 10/29/2023 multivit-min/iron/foli c acid/K (BARIATRIC MULTIVITAMINS ORAL) Take by mouth daily. pantoprazole (PROTONIX) 40 mg EC tablet Take 1 tablet (40 mg total) by mouth 1 (one) time each day. 05/14/2023 simvastatin (ZOCOR) 10 mg tablet Take 1 Tablet by mouth at bedtime. 07/05/2023 traZODone (DESYREL) 50 mg tablet Take 1 Tablet by mouth at bedtime. 07/05/2023 triamcinolone (NASACORT) 55 mcg nasal inhaler 55 mcg by Nasal route daily. 05/14/2023 melatonin 3 mg tablet Take 1 Tablet by mouth at bedtime. 10/29/2023 05/08/2024 documented as of this encounter Discharge Disposition Disposition Code Departure Means Destination Home or Self Care documented in this encounter Plan of Treatment Upcoming Encounters Date Type Department Care Team (Late st Contact Info) Description 05/19/2024 8:00 AM EST Treatment [facility] [address] [phone] Kayce Walker, PT 05/26/2024 8:00 AM EST Treatment [facility] [address] [phone] Kayce Walker, PT 06/09/2024 8:00 AM EST Treatment [facility] [address] [phone] Kayce Walker, PT 06/16/2024 8:00 AM EST Treatment [facility] [address] [phone] Kayce Walker, PT 07/08/2024 8:30 AM EDT [facility] [address] [phone] Archana Woods NP [address] [address] 09/26/2024 11:10 AM EDT Appointment Radiology Department - [address] [address] 10/29/2024 8:00 AM EDT Office Visit G[facility]ology - [place] 175 [facility] 175 [facility] [address] [place] [address] Yamilka Brice, GEOFF 175 [facility] 200 [place] [address] documented as of this encounter Goals Goal [...] with HEP documented as of this encounter Procedures Procedure Name Priority Date/Time Associated Diagnosis Comments XR FINGERS 2+ VIEWS BILATERAL Routine 04/23/2024 8:48 AM EST Bilateral thumb pain documented in this encounter Results * XR Fingers 2+ Views bilat (04/23/2024 [...] Signed Date: 04/23/2024 09:08 ET Workstation ID: [id number] Transcribed By: Self Edit Transcribed Date: 04/23/2024 [...] Signed Date: 04/23/2024 09:08 ET Workstation ID: [id number] Transcribed By: Self Edit Transcribed Date: 04/23/2024 09:06 ET Mike JEAN IMG XR PROCEDURES documented in this encounter Visit Diagnoses Diagnosis Bilateral thumb pain Encounter for screening mammogram for breast cancer documented in this encounter Care Teams Engineer Technician Relationship Specialty Start Date End Date Maria Dolores Jones MD [address] [place] [address] PCP - General Internal Medicine 12/13/21 documented as of this encounter
--- OUTSIDE RECORDS SUMMARY | 2024-05-13 16:29 | XMS_ITS | Encounter Summary ---
Author Organization [facility] Address [address] [place] [address] Care Team Providers Care Manager Subway Name Role Phone Maria Dolores Jones MD Primary Care Provider Encounter Details Date Type Department Care Team (Late Contact Info) Description 01/16/2024 7:30 AM EDT Hospital Encounter TH HISTORIC ENCOUNTERS EASTERN CONVERSION ONLY Laz Lunsford, [place] [address] [place] [address] Social History Tobacco Use Types Packs/Day Years [...] on file documented as of this encounter Plan of Treatment Upcoming Encounters Date Type Department Care Team (Late Contact Info) Description 05/19/2024 8:00 AM EST Treatment [facility] [address] [phone] Kayce Walker, PT 05/26/2024 8:00 AM EST Treatment [facility] [address] [phone] Kayce Walker, PT 06/09/2024 8:00 AM EST Treatment [facility] [address] [phone] Kayce Walker, PT 06/16/2024 8:00 AM EST Treatment [facility] [address] [phone] Kayce Walker, PT 07/08/2024 8:30 AM EDT Office Visit Pulmonolgy - [place] [address] [facility] [address] [place] [phone] Archana Woods, GEOFF [address] [address] 09/26/2024 11:10 AM EDT Appointment Radiology Department [address] [phone] 10/29/2024 8:00 AM EDT Office Visit G[facility]enter[facility] - [place] [address] [phone] Yamilka Brice, GEOFF [address] [address] documented as of this encounter Goals Goal [...] documented as of this encounter Visit Diagnoses Not on filedocumented in this encounter Care Teams Manager Subway Relationship Specialty Start Date End Date Maria Dolores Jones MD [address] [place] [address] PCP - General Internal Medicine 12/13/21 documented as of this encounter
--- OUTSIDE RECORDS SUMMARY | 2024-05-13 16:29 | XMS_ITS | Clinical Summary ---
Author Organization [facility] Address [address] [place] [address] Care Team Providers Care Developer Evangelist Name Role Phone Unavailable Primary Care Provider Unavailabl e Source Comments PLEASE NOTE, if this patient is a minor, it may be UNLAWFUL to discuss sensitive information that is contained in these records (such as FAMILY PLANNING, MENTAL HEALTH or SUBSTANCE ABUSE) with the minor patient's parent or other person without the patient's specific authorization.[facility] Immunizations Name Administration Dates Next Due Moderna COVID-19 Vaccine, re d cap blue label, 12+ Primary Series 04/30/2020 Social History Tobacco Use Types Packs/Day Years Used Date Smoking Tobacco: Never Assessed Social Connections Answer Date Recorded Social Connections and Isolation 0 05/16/2023 Financial Resource Strain Answer Date R ecorded Financial Resource Strain 0 2023 Stress Answer Date Recorded Stress 0 05/16/2023 Physical Activity Answer Date Recorded Physical Activity 0 05/16/2023 Food Insecurity Answer Date Recorded Food 0 05/16/2023 Transportation Needs Answer Date Record ed Transportation 0 05/16/2023 Housing Stability Answer Date Recorded Housing 0 05/16/2023 Safety and Environment Answer Date Lb rded Safety 0 05/16/2023 Utilities Answer Date Recorded Utilities 0 05/16/2023 Employment Answer Date Recorded Employment 0 05/16/2023 Comments Unknown Sex and Gender Information Value Date Recorded Sex Assigned at Not on file Legal Sex Female 7:15 AM PST Gender Identity Not on file Sexual Orientation Not on file Plan of Treatment Not on file
--- OUTSIDE RECORDS SUMMARY | 2024-05-13 16:29 | XMS_ITS | Encounter Summary ---
Author Organization [facility] Address [address] [place] [phone] Care Team Providers Care Animation Producer Name Role Phone Maria Dolores Jones MD Primary Care Provider Reason for Visit * Consultation (Routine) - Authorized Specialty Diagnoses / Procedures Referred By Ganesh rea Referred To Contact Physical Therapy Diagnoses Bursitis of left shoulder Laz Lunsford, [place] [address] [place] [address] [facility] Therapy [address] [phone] Referral ID Status Reason Start Date Expiration Date Visits Requested Visits Authorized [id number] Authorized Specialty Services Required 01/16/2024 01/15/2025 16 16 Encounter Details Date Type Department Care Team (Late st Contact Info) Description 05/05/2024 8:00 AM EST Treatment [facility] [address] [phone] Kayce Walker PT Bursitis of [...] Progress Notes * Kayce Walker PT - 05/05/2024 8:00 AM EST [facility] - Outpatient PHYSICAL THERAPY DAILY TREATMENT NOTE - OP Date: 05/05/2024 Visit Number: [id number] Patient Name: Priti Hernandez : 1970 Age: 53 y.o. Gender: female Diagnosis: ICD-10-CM ICD-9-CM 1. Bursitis of left shoulder M75.52 726.10 Date of Onset/Surgery: 01/16/2024 Referring Provider: Laz Lunsford PA Insurance: Payor: [employer] PLAN / Plan: [place] MEDICAID / Product Type: *No Product type* / Patient Identified by: Kayce Walker PT Language: Speaks and understands Sami as preferred language with no test deskman required Medications: Current Outpatient Medications on File Prior [...] total) by mouth 1 (one) timeeach day. [id number] ORAL Take by mouth. 2 tablets bid [...] risk: No Patient/Caregiver Goals: SUBJECTIVE Subjective Report: Patient reports she has been sick for the last 2 weeks and reports her back is feeling very sore and tight today. Chart Reviewed: Yes Pain Left neck/shoulder: 5/10 achy pain TREATMENT INTERVENTION: Procedures: Manual therapy interventions Dry needling (informed consent) to bilateral erector spinae and QL - no charge x 5 min STM to erector spinae and QL bilaterally ASSESSMENT/Response to Treatment Good The patient tolerated manual therapy interventions well with minimal complaints of discomfort in her low back. She had reduced myofascial restrictions following manual therapy interventions. Patient Education: Education Provided To: Patient utilizing Explanation and Demonstration mode(s) of education Response to Education: Applied Knowledge PLAN POC Development/Review: No Change in the Plan of Care; Participants: Patient Total Treatment Time: 25 Therapeutic procedures: Manual Therapy Time Entry: 25 Documentation completed by Kayce Walker PT documented in this encounter Plan of Treatment Upcoming Encounters Date Type Department Care Team (Late st Contact Info) Description 05/19/2024 8:00 AM EST Treatment [facility] [address] [phone] Kayce Walker, PT 05/26/2024 8:00 AM EST Treatment [facility] [address] [phone] Kayce Walker, PT 06/09/2024 8:00 AM EST Treatment [facility] [address] [phone] Kayce Walker, PT 06/16/2024 8:00 AM EST Treatment [facility] [address] [phone] Kayce Walker, PT 07/08/2024 8:30 AM EDT Office Visit Pulmonolgy - [place] [address] [phone] Archana Woods NP [address] [address] 09/26/2024 11:10 AM EDT Appointment Radiology Department [address] [phone] 10/29/2024 8:00 AM EDT Office Visit Gastroenterology - [place] 175 [facility] [address] [phone] Yamilka Brice, GEOFF 175 [facility] [address] [place] [address] documented as of this encounter Goals Goal [...] cancer documented in this encounter Care Teams Animation Producer Relationship Specialty Start Date End Date Maria Dolores Jones MD [address] [place] [address] [address] [place] [address] PCP - General Internal Medicine 12/13/21 documented as of this encounter
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
== END 2024-05-13 15:42 | disposition home or self-care (01) ==
LOC: HO.HOSX 15:41
PROVIDERS: Visit Provider Physician Assistant
DX: Z13.89 Encounter for screening for other disorder (principal)

== ENCOUNTER → 2024-05-15 10:51 | Outpatient (BNV) | payer OTHER, SELFPAY | PROVIDERS: Visit Provider Radiology Diagnostic Radiology | DX: M51.369 Other intervertebral disc degeneration, lumbar region without mention of lumbar back pain or lower extremity pain (principal) | CPT/HCPCS: 72110 ==

== ENCOUNTER 2024-05-15 15:41 | Outpatient (REF) | payer OTHER, SELFPAY ==
--- NOTE | ~2024-05-15 | XR_ITS ---
CLINICAL HISTORY: M51.369 - Other intervertebral disc degeneration, lumbar region without ... Exam: AP, lateral, flexion lateral, and extension lateral views of the lumbar spine. Comparison: None. Findings: Minimal to mild convex left mid lumbar curvature. Neutral lateral view demonstrates anatomic alignment. No abnormal motion seen on flexion or extension. Severe disc space narrowing at L4-5 with discogenic sclerosis, osteophytic ridging, and vacuum phenomenon. Mild degenerative disc disease at L3-4 with moderate degenerative disc disease at L5-S1. Moderate facet joint degenerative change from L3-4 inferiorly. Impression: Degenerative changes as above without acute fracture or abnormal motion. This document has been electronically signed by: Lionel Colby MD on 05/16/2024 17:09:52
--- OUTSIDE RECORDS SUMMARY | 2024-05-15 14:33 | XMS_ITS | Clinical Summary ---
Author Organization 175 [facility] Address 175 [place] [address] Phone Care Team Providers Care Fans Clerk Name Role Phone Maria Dolores Jones MD [...] Assessment & Plan: Sent CPAP 6 to [facility](12/01/2022) Umbilical hernia without obstruction and without gangrene 03/06/2017 Adjustment disorder with mixed anxiety and depre ssed mood 05/18/2015 Overview (01/22/2024): Rufino Marc Palpitations 08/05/2013 Overview (01/22/2024): [facility] Cardiology, 07/28/2013: NSR 87-113 BPM with no atrial or ventricular ectopy, rare PACs, few Atrial Pairs, rare PVCs, no significant pauses. Diary with one entry of palpitations and multiple enteries of SOB. Encounters Date Type Department Care Team Description 05/08/2024 8:00 AM EST Consult Orthopedic Surgery - [place] [address] [facility] [address] [place] [address] Delma Miller PA Arthritis of carpometacarpal (CMC) joint of both thumbs (Primary Dx); Bilateral thumb pain 05/05/2024 8:00 AM EST Treatment [facility] Outpatient Rehabilitation - [place] [address] [facility] [address] [place] [address] Kayce Walker PT Bursitis of left shoulder (Primary Dx) 05/01/2024 8:00 AM EST Consult Gastroenterology - [place] 175 [facility] [address] [facility] [address] [place] [address] Yamilka Brice NP Gastroesophageal reflux disease, unspecified whether esophagitis present (Primary Dx); Lactose intolerance; Bariatric surgery status 04/23/2024 8:22 AM EST - 04/23/2024 11:59 PM EST Hospital Encounter Xr - [place] [address] [place] [phone] Bilateral thumb pain Discharge Disposition: Home or Self Care 04/21/2024 8:00 AM EST Treatment [address] [phone] Kayce Walker, PT Bursitis of left shoulder (Primary Dx); Upper back strain, subsequent encounter 04/14/2024 8:00 AM EST Treatment [address] [phone] Kayce Walker, PT Bursitis of left shoulder (Primary Dx) 04/07/2024 8:00 AM EST Treatment [address] [phone] Kayce Walker, PT Bursitis of left shoulder 03/25/2024 11:00 AM EST Office Visit Adult Medicine [address] [phone] Mike Pagan PA Bilateral thumb pain (Primary Dx); Fall, initial encounter; DM (diabetes mellitus), type 2 with neurological complications ([facility]); Primary hypertension; Hypercholesterolemia; Chronic neck pain; Moderate persistent asthma without complication; Obstructive sleep apnea hypopnea, mild; Gastroesophageal reflux disease, unspecified whether esophagitis present 03/18/2024 7:30 AM EST Treatment [address] [phone] Kayce Walker, PT Upper back strain, subsequent encounter (Primary Dx) 03/04/2024 10:00 AM EST Treatment [address] [phone] Kayce Walker, PT Upper back strain, subsequent encounter (Primary Dx) 02/26/2024 7:30 AM EST Treatment [address] [phone] Kayce Walker, PT Upper back strain, subsequent [...] COMMENT: abdominoplasty CARPAL TUNNEL RELEASE Bilateral PROCEDURE: [place] NEUROPLASTY &/TRANSPOS MEDIAN NRV CARPAL TUNNE GASTRIC BYPASS 02/2021 PROCEDURE: IL GASTRIC RSTCV W/BYP W/SM INT RCNSTJ LIMIT ABSRPJ OTHER SURGICAL HISTORY Bilateral PROCEDURE: IMPLANT BREAST SILICONE/EQ; COMMENT: saline retropec BREAST SURGERY 2003 PROCEDURE: IL UNLISTED PROCEDURE BREAST; COMMENT: Augmentation OTHER SURGICAL HISTORY 11/30/2021 Right PROCEDURE: IL EXC BREAST LES PREOP PLMT RAD MARKER [...] Worrell in Pulmonary Palpitations 08/05/2013 DX:Palpitations; COMMENT: [facility] Cardiology, 07/28/2013: NSR 87-113 BPM with [...] Name Comments Diabetes Father Hypertension Father DM, [place] age mid 50s, ESRD, Glaucoma, kidney transplant, [...] Info) Description 05/19/2024 8:00 AM EST Treatment [facility] [address] [phone] Kayce Walker, PT 05/26/2024 8:00 AM EST Treatment [facility] [address] [phone] Kayce Walker, PT 06/09/2024 8:00 AM EST Treatment [facility] [address] [phone] Kayce Walker, PT 06/16/2024 8:00 AM EST Treatment [facility] [address] [phone] Kayce Walker, PT 07/08/2024 8:30 AM EDT Office Visit Pulmonolgy - [place] [address] [phone] Archana Woods, GEOFF [address] [address] 09/26/2024 11:10 AM EDT Appointment Radiology Department [address] [address] 10/29/2024 8:00 AM EDT Office Visit Gastroenterology [facility] [address] [phone] Yamilka Brice, GEOFF [address] [address] Health Maintenance Due Date Last Done Comments [...] Procedure Name Priority Date/Time Associated Diagnosis Comments [place] ARTHROCENTESIS/ASPIRA TION/INJECTION SMALL JOINT/BURSA WO U/S GUIDANCE [...] Recently Relevant to Health Maintenance Results * [place] ARTHROCENTESIS/ASPIRATION/INJECTION SMALL JOINT/BURSA WO U/S GUIDANCE (05/08/2024 [...] Signed Date: 04/23/2024 09:08 ET Workstation ID: [id number] Transcribed By: Self Edit Transcribed Date: 04/23/2024 [...] Signed Date: 04/23/2024 09:08 ET Workstation ID: [id number] Transcribed By: Self Edit Transcribed Date: 04/23/2024 09:06 ET Mike JEAN IMG XR PROCEDURES * Lipid panel with reflex to direct LDL (03/25/2024 11:54 AM EST) Cholesterol 160 0 - 200 mg/dL LAB CHEMISTRY METHOD 03/25/2024 7:02 PM [facility] Triglycerides 120 0 - 150 mg/dL LAB CHEMISTRY METHOD 03/25/2024 7:02 PM [facility] HDL 58 >=40 mg/dL LAB CHEMISTRY METHOD 03/25/2024 7:02 PM [facility] LDL Calculated 78 0 - 100 mg/dL LAB CHEMISTRY METHOD 03/25/2024 7:02 PM [facility] VLDL Cholesterol Kit 24 mg/dL LAB CHEMISTRY METHOD 03/25/2024 7:02 PM [facility] Non HDL Chol. (LDL+VLDL) 102 <145 mg/dL LAB CHEMISTRY METHOD 03/25/2024 7:02 PM [facility] Chol/HDL Ratio 2.8 0.0 - 4.4 LAB CHEMISTRY METHOD 03/25/2024 7:02 PM [facility] Blood Venous blood specimen / Unknown Venipuncture / Unknown 03/25/2024 11:54 AM EST 03/25/2024 11:54 AM EST Mike JEAN LAB BLOOD ORDERABLES [facility] [address] [place] [address], [place] [phone] * Hemoglobin A1c (03/25/2024 11:54 AM EST) Pathologist [facility] Hemoglobin A1C 5.6 <6.5 % LAB CHEMISTRY METHOD 03/25/2024 6:55 PM [facility] Mean Bld Glu Estim. 114 mg/dL LAB CHEMISTRY METHOD 03/25/2024 6:55 PM [facility] Blood Venous blood specimen / Unknown Venipuncture / Unknown 03/25/2024 11:54 AM EST 03/25/2024 11:54 AM EST Mike JEAN LAB BLOOD ORDERABLES [facility] [address] [place] [address], [place] [phone] * (ABNORMAL) Comprehensive metabolic panel (03/25/2024 11:54 AM EST) Sodium 140 133 - 145 mmol/L LAB CHEMISTRY METHOD 03/25/2024 7:05 PM [facility] Potassium 3.9 3.5 - 5.5 mmol/L LAB CHEMISTRY METHOD 03/25/2024 7:05 PM [facility] Chloride 105 96 - 110 mmol/L LAB CHEMISTRY METHOD 03/25/2024 7:05 PM [facility] CO2 29 21 - 32 mmol/L LAB CHEMISTRY METHOD 03/25/2024 7:05 PM [facility] Anion Gap 6 3 - 11 LAB CHEMISTRY METHOD 03/25/2024 7:05 PM [facility] Glucose 117(H) 70 - 100 mg/dL LAB CHEMISTRY METHOD 03/25/2024 7:05 PM [facility] BUN 15 5 - 25 mg/dL LAB CHEMISTRY METHOD 03/25/2024 7:05 PM [facility] Creatinine 0.76 0.50 - 1.10 mg/dL LAB CHEMISTRY METHOD 03/25/2024 7:05 PM [facility] eGFR 95 >=60 mL/min/1. 73m2 LAB CHEMISTRY METHOD 03/25/2024 7:05 PM [facility] Comment:Calculation based on the??Chronic Kidney Disease Epidemiology Collaboration (CKD-EPI) equation refit??without adjustment for race. BUN/Creatinine Ratio 19.7 LAB CHEMISTRY METHOD 03/25/2024 7:05 PM [facility] Calcium 9.3 8.5 - 10.5 mg/dL LAB CHEMISTRY METHOD 03/25/2024 7:05 PM [facility] AST (SGOT) 19 10 - 42 unit/L LAB CHEMISTRY METHOD 03/25/2024 7:05 PM [facility] ALT (SGPT) 33 10 - 60 unit/L LAB CHEMISTRY METHOD 03/25/2024 7:05 PM [facility] Alkaline Phosphatase 73 42 - 121 unit/L LAB CHEMISTRY METHOD 03/25/2024 7:05 PM [facility] Total Protein 7.4 6.0 - 8.0 g/dL LAB CHEMISTRY METHOD 03/25/2024 7:05 PM [facility] Albumin 4.1 3.2 - 5.0 g/dL LAB CHEMISTRY METHOD 03/25/2024 7:05 PM EST [facility] Total Bilirubin 0.4 0.0 - 1.4 mg/dL LAB CHEMISTRY METHOD 03/25/2024 7:05 PM EST [facility] Blood Venous blood specimen / Unknown Venipuncture / Unknown 03/25/2024 11:54 AM EST 03/25/2024 11:54 AM EST Mike JEAN LAB BLOOD ORDERABLES [facility] [address] [place] [address], * Depression Screening (01/05/2024) Depression Screening abstracted Historical Provider [facility] E * HIV Screening (12/06/2023) HIV Screening abstracted Historical Provider [facility] E * Hepatitis C Screening (12/06/2023) Hepatitis C Screening abstracted Historical Provider [facility] E * SCREENING MAMMOGRAPHY BI 2-VIEW BREAST [...] [facility]. Study: SCREENING MAMMOGRAPHY [...] Region Laterality Modality Other Historical Provider MD ANTONIO MCCARTNEY E * Cervical Cancer Screening: HPV (08/15/2021) Pathologist [facility] Cervical Cancer Screening: HPV no interpretation , abstracted Historical Provider MD ANTONIO Adler from Last 3 Months or Most Recently Relevant to Health Maintenance Care Teams Fans Clerk Relationship Specialty Start Date End Date Maria Dolores Jones MD [address] [place] [address] PCP - General Internal Medicine 12/13/21
--- OUTSIDE RECORDS SUMMARY | 2024-05-15 14:33 | XMS_ITS | Encounter Summary ---
Author Organization [facility] Address [address] [place] [address] Care Team Providers Care Sensor Operator Name Role Phone Maria Dolores Jones MD [...] whether esophagitis present Mike Pagan PA [address] [place] [address] [facility] [address] [address] Referral ID Status Reason Start Date Expiration Date V isits Requested Visits Authorized [id number] Closed Specialty Services Required 03/25/2024 03/25/2025 1 1 Encounter Details Date Type Department Care Team ([facility] st Contact Info) Description 05/01/2024 8:00 AM EST Consult Gastroenterology - [place] [address] [phone] Yamilka Brice NP [address] [address] Gastroesophageal reflux disease, unspecified whether esophagitis present [...] PROCEDURE: HISTORICAL APPENDECTOMY BREAST SURGERY 2003 PROCEDURE: SD UNLISTED PROCEDURE BREAST; COMMENT: Augmentation CARPAL TUNNEL RELEASE Bilateral PROCEDURE: SD NEUROPLASTY &/TRANSPOS MEDIAN NRV CARPAL TUNNE SECTION 2005, 1998, 2012 PROCEDURE: HISTORICAL DELIVERY GASTRIC BYPASS 02/2021 PROCEDURE: SD GASTRIC RSTCV W/BYP W/SM INT RCNSTJ LIMIT ABSRPJ OTHER SURGICAL HISTORY 08/2015 PROCEDURE: HISTORY OTHER; COMMENT: abdominoplasty OTHER SURGICAL HISTORY Bilateral PROCEDURE: IMPLANT BREAST SILICONE/EQ; COMMENT: saline retropec OTHER SURGICAL HISTORY Right 11/30/2021 PROCEDURE: SD EXC BREAST LES PREOP PLMT RAD MARKER OPEN 1 LES; COMMENT: Right breast magnetic seed localized excision SOCIAL HISTORY: Social History Tobacco Use Smoking status: Never Smokeless tobacco: Never Substance Use Topics Alcohol use: Yes Drug use: No FAMILY HISTORY: Family History Problem Relation Name Age of Onset Hypertension Mother diabetes Diabetes Mother Depression Mother Leukemia Mother Hypertension Father DM, [place] age mid 50s, [...] total) by mouth 1 (one) timeeach day. [id number] ORAL Take by mouth. 2 tablets bid [...] have been created in part by using [employer] dictation software, and therefore, it may contain [...] Info) Description 05/19/2024 8:00 AM EST Treatment [facility] [address] [address] Kayce Walker, PT 05/26/2024 8:00 AM EST Treatment [facility] [address] [phone] Kayce Walker, PT 06/09/2024 8:00 AM EST Treatment [facility] [address] [phone] Kayce Walker, PT 06/16/2024 8:00 AM EST Treatment [facility] [address] [phone] Kayce Walker, PT 07/08/2024 8:30 AM EDT Office Visit Pulmonolgy - [address] [phone] Archana Woods NP [address] [address] 09/26/2024 11:10 AM EDT Appointment Radiology Department [address] [phone] 10/29/2024 8:00 AM EDT Office Visit Gastroenterology - [place] [address] [phone] Yamilka Brice, GEOFF [address] [address] documented as of this encounter Goals Goal [...] 25 documented in this encounter Care Teams Sensor Operator Relationship Specialty Start Date End Date Maria Dolores Jones MD [address] [place] [address] PCP - General Internal Medicine 12/13/21 documented as of this encounter
--- OUTSIDE RECORDS SUMMARY | 2024-05-15 14:34 | XMS_ITS | Encounter Summary ---
Author Organization [facility] Address [address] [place] [address] Care Team Providers Care Tree Topper Name Role Phone Maria Dolores Jones MD Primary Care Provider Reason for Visit * Consultation (Routine) - Authorized Specialty Diagnoses / Procedures Referred By Ganesh rea Referred To Contact Physical Therapy Diagnoses Bursitis of left shoulder Laz Lunsford, PA [address] [place] [address] [facility] Physical Therapy [address] [address] Referral ID Status Reason Start Date Expiration Date Visits Requested Visits Authorized [id number] Authorized Specialty Services Required 01/16/2024 01/15/2025 16 16 Encounter Details Date Type Department Care Team (Late st Contact Info) Description 05/05/2024 8:00 AM EST Treatment [facility] Outpatient Rehabilitation [address] [phone] Kayce Walker PT Bursitis of [...] Walker PT - 05/05/2024 8:00 AM EST [facility] - Outpatient PHYSICAL THERAPY DAILY TREATMENT NOTE - OP Date: 05/05/2024 Visit Number: 7 Patient Name: Priti Hernandez : 1970 Age: 53 y.o. Gender: female Diagnosis: ICD-10-CM ICD-9-CM 1. Bursitis of left shoulder M75.52 726.10 Date of Onset/Surgery: 01/16/2024 Referring Provider: Laz Lunsford PA Insurance: Payor: [employer] PLAN / Plan: [employer] MEDICAID / Product Type: *No Product type* / Patient Identified by: Kayce Walker PT Language: Speaks and understands Faroese as preferred language with no cylinder batcher required Medications: Current Outpatient Medications on File [...] total) by mouth 1 (one) timeeach day. [id number] ORAL Take by mouth. 2 tablets bid [...] AM EST Treatment [facility] [address] [phone] Kayce Walker, PT 05/26/2024 8:00 AM EST Treatment [facility] [address] [address] Kayce Walker, PT 06/09/2024 8:00 AM EST Treatment [facility] [address] [phone] Kayce Walker, PT 06/16/2024 8:00 AM EST Treatment [facility] [address] [phone] Kayce Walker, PT 07/08/2024 8:30 AM EDT Office Visit Pulmonolgy - [place] [address] [phone] Archana Woods NP [address] [address] 09/26/2024 11:10 AM EDT Appointment Radiology Department [address] [address] 10/29/2024 8:00 AM EDT Office Visit Gastroenterology - [place] 175 [place] [phone] Yamilka Brice, GEOFF 175 [facility] [address] [place] [address] documented as of this encounter Goals Goal [...] cancer documented in this encounter Care Teams Tree Topper Relationship Specialty Start Date End Date Maria Dolores Jones MD [address] [place] [address] [address] [place] [address] PCP - General Internal Medicine 12/13/21 documented as of this encounter
--- OUTSIDE RECORDS SUMMARY | 2024-05-15 14:34 | XMS_ITS | Encounter Summary ---
Author Organization [facility] Address [address] [place] [address] Care Team Providers Care Laser Cutter Name Role Phone Maria Dolores Jones MD Primary Care Provider Reason for Referral * Orthopedic (Routine) - Pending Review Specialty Diagnoses / Procedures Referred By Ganesh rea Referred To Contact Orthopedic Surgery / Orthopaedic Surgery Diagnoses Arthritis of carpometacarpal (CMC) joint of both thumbs Procedures Hand / UE Inj/Asp: bilateral thumb CMC Delma Miller PA [address] [address] Referral ID Status Reason Start Date Expiration Date V isits Requested Visits Authorized [id number] Pending Review 05/08/2024 05/08/2025 1 1 Reason for Visit * Reason Comments Pain Pain * Consultation (Routine) - Closed Specialty Diagnoses / Procedures Referred By Ganesh rea Referred To Contact Hand Surgery / Orthopaedic Surgery Diagnoses Bilateral thumb pain Mike Pagan PA [address] [place] [address] Delma Miller PA [address] [place] [phone] Referral ID Status Reason Start Date Expiration Date V isits Requested Visits Authorized [id number] Closed Specialty Services Required 04/24/2024 04/24/2025 1 1 Encounter Details Date Type Department Care Team (Late st Contact Info) Description 05/08/2024 8:00 AM EST Consult Orthopedic Surgery - [place] [address] [place] [address] Delma Miller PA [address] [place] [address] Arthritis of carpometacarpal (CMC) joint [...] Left Thumb - Pain . HPI: 53-year-old dkoxo-hipv-hiyjadtu female chief complaint of bilateral thumb pain [...] Sleep Study ??? Palpitations 08/05/2013 DX:Palpitations; COMMENT: [facility] Cardiology, 07/28/2013: NSR 87-113 BPM with no [...] HISTORICAL APPENDECTOMY ??? BREAST SURGERY 2003 PROCEDURE: [place] UNLISTED PROCEDURE BREAST; COMMENT: Augmentation ??? CARPAL TUNNEL RELEASE Bilateral PROCEDURE: [place] NEUROPLASTY &/TRANSPOS MEDIAN NRV CARPAL TUNNE ??? SECTION 2005, 1998, 2012 PROCEDURE: HISTORICAL DELIVERY ??? GASTRIC BYPASS 02/2021 PROCEDURE: [place] GASTRIC RSTCV W/BYP W/SM INT RCNSTJ LIMIT ABSRPJ ??? OTHER SURGICAL HISTORY 08/2015 PROCEDURE: HISTORY OTHER; COMMENT: abdominoplasty ??? OTHER SURGICAL HISTORY Bilateral PROCEDURE: IMPLANT BREAST SILICONE/EQ; COMMENT: saline retropec ??? OTHER SURGICAL HISTORY Right 11/30/2021 PROCEDURE: CO EXC BREAST LES PREOP PLMT RAD MARKER [...] ??? Leukemia Mother ??? Hypertension Father DM, [place] age mid 50s, ESRD, Glaucoma, kidney transplant, [...] mouth 1 (one) time each day. ??? [id number] ORAL Take by mouth. 2 tablets bid [...] Info) Description 05/19/2024 8:00 AM EST Treatment [address] [phone] Kayce Walker PT 05/26/2024 8:00 AM EST Treatment [facility] [address] [phone] Kayce Walker, PT 06/09/2024 8:00 AM EST Treatment [facility] [address] [phone] Kayce Walker, PT 06/16/2024 8:00 AM EST Treatment [facility] [address] [phone] Kayce Walker, PT 07/08/2024 8:30 AM EDT Office Visit Pulmonolgy [facility] [address] [phone] Archana Woods, GEOFF [address] [address] 09/26/2024 11:10 AM EDT Appointment Radiology Department [address] [address] 10/29/2024 8:00 AM EDT Office Visit Gastroenterology [facility] [address] [phone] Yamilka Brice, GEOFF [address] [address] documented as of this encounter Goals Goal [...] Procedure Name Priority Date/Time Associated Diagnosis Comments CO ARTHROCENTESIS/ASP IRATION/INJECTION SMALL JOINT/BURSA WO U/S GUIDANCE Routine 05/08/2024 8:00 AM EST Arthritis of carpometacarpal (CMC) joint of both thumbs documented in this encounter Results * CO ARTHROCENTESIS/ASPIRATION/INJECTION SMALL JOINT/BURSA WO U/S GUIDANCE (05/08/2024 [...] 05/08/2024 documented in this encounter Care Teams Laser Cutter Relationship Specialty Start Date End Date Maria Dolores Jones MD [address] [place] [address] PCP - General Internal Medicine 12/13/21 documented as of this encounter
--- OUTSIDE RECORDS SUMMARY | 2024-05-15 14:34 | XMS_ITS | Encounter Summary ---
Author Organization [facility] Address [address] [place] [address] Care Team Providers Care Tongue And Groove Machine Operator Name Role Phone Maria Dolores Jones MD Primary Care Provider Reason for Visit * Consultation (Routine) - Authorized Specialty Diagnoses / Procedures Referred By Ganesh rea Referred To Contact Physical Therapy Diagnoses Bursitis of left shoulder Laz Lunsford, TED [address] [place] [address] [facility] Physical Therapy [address] [address] Referral ID Status Reason Start Date Expiration Date Visits Requested Visits Authorized [id number] Authorized Specialty Services Required 01/16/2024 01/15/2025 16 16 Encounter Details Date Type Department Care Team (Late st Contact Info) Description 04/21/2024 8:00 AM EST Treatment [facility] Outpatient Rehabilitation [address] [phone] Kayce Walker PT Bursitis of [...] Moskal, PT - 04/21/2024 8:00 AM EST [facility] - Outpatient PHYSICAL THERAPY DAILY TREATMENT NOTE - OP Date: 04/21/2024 Visit Number: 6 Patient Name: Priti Hernandez : 1970 Age: 53 y.o. Gender: female Diagnosis: ICD-10-CM ICD-9-CM 1. Bursitis of left shoulder M75.52 726.10 2. Upper back strain, subsequent encounter S29.012D V58.89 847.1 Date of Onset/Surgery: 01/16/2024 Referring Provider: aLz Lunsford PA Insurance: Payor: [employer] / Plan: [employer] MEDICAID / Product Type: *No Product type* / Patient Identified by: Kayce Walker PT Language: Sierra Leonean Medications: Current Outpatient Medications on File Prior [...] total) by mouth 1 (one) timeeach day. [id number] ORAL Take by mouth. 2 tablets bid [...] Info) Description 05/19/2024 8:00 AM EST Treatment [facility] [address] [address] Kayce Walker, PT 05/26/2024 8:00 AM EST Treatment [facility] [address] [address] Kayce Walker, PT 06/09/2024 8:00 AM EST Treatment [facility] [address] [phone] Kayce Walker, PT 06/16/2024 8:00 AM EST Treatment [facility] [address] [address] Kayce Walker, PT 07/08/2024 8:30 AM EDT Office Visit Pulmonolgy [facility] [address] [phone] Archana Woods NP [address] [address] 09/26/2024 11:10 AM EDT Appointment Radiology Department - [address] [address] 10/29/2024 8:00 AM EDT Office Visit Gastroenterology - [place] 175 [facility] 175 [facility] [address] [place] [phone] Yamilka Brice, GEOFF 175 [facility] 200 [place] [address] documented as of this encounter Goals Goal [...] cancer documented in this encounter Care Teams Tongue And Groove Machine Operator Relationship Specialty Start Date End Date Maria Dolores Jones MD [address] [place] [address] [address] [place] [address] PCP - General Internal Medicine 12/13/21 documented as of this encounter
--- OUTSIDE RECORDS SUMMARY | 2024-05-15 14:34 | XMS_ITS | Encounter Summary ---
Author Organization [facility] Address [address] [place] [address] Care Team Providers Care Spool Cleaner Name Role Phone Maria Dolores Jones MD Primary Care Provider Encounter Details Date Type Department Care Team (Late Contact Info) Description 01/16/2024 7:30 AM EDT Hospital Encounter TH HISTORIC ENCOUNTERS EASTERN CONVERSION ONLY Laz L[place], [place] [address] [place] [address] Social History Tobacco Use Types Packs/Day Years [...] Info) Description 05/19/2024 8:00 AM EST Treatment [facility] [address] [phone] Kayce Walker, PT 05/26/2024 8:00 AM EST Treatment [facility] [address] [phone] Kayce Walker, PT 06/09/2024 8:00 AM EST Treatment [facility] [address] [phone] Kayce Walker, PT 06/16/2024 8:00 AM EST Treatment [facility] [address] [phone] Kayce Walker, PT 07/08/2024 8:30 AM EDT Office Visit [facility] [place] 175 [facility] [address] [place] [phone] Archana Woods, GOEFF [address] [address] 09/26/2024 11:10 AM EDT Appointment Radiology Department [address] [phone] 10/29/2024 8:00 AM EDT Office Visit G[facility]ology [place] [address] [phone] Yamilka Brice, GEOFF [address] [address] documented as of this encounter Goals Goal [...] on filedocumented in this encounter Care Teams Spool Cleaner Relationship Specialty Start Date End Date Maria Dolores Jones MD [address] [place] [phone] PCP - General Internal Medicine 12/13/21 documented as of this encounter
--- OUTSIDE RECORDS SUMMARY | 2024-05-15 14:34 | XMS_ITS | Clinical Summary ---
Author Organization [facility] Address [address] [place] [address] Care Team Providers Care Statement Clerks Manager Name Role Phone Unavailable Primary Care Provider [...]
--- OUTSIDE RECORDS SUMMARY | 2024-05-15 14:34 | XMS_ITS | Clinical Summary ---
Author Organization [facility] Address [address] [place] [address] Care Team Providers Care Tower Switch Operator Name Role Phone Unavailable Primary Care Provider [...]
--- OUTSIDE RECORDS SUMMARY | 2024-05-15 14:34 | XMS_ITS | Encounter Summary ---
Author Organization [facility] Address [id number] [place] [phone] Care Team Providers Care Molder Pipe Covering Name Role Phone Maria Dolores Jones MD Primary Care Provider Encounter Details Date Type Department Care Team (Latest Contact Info) Description 04/23/2024 8:22 AM EST - 04/23/2024 11:59 PM EST Hospital Encounter [facility]az [address] [place] [phone] Bilateral thumb pain Discharge Disposition: Home [...] mouth 1 (one) time each day. 05/14/2023 [id number] ORAL Take by mouth. 2 tablets bid [...] Info) Description 05/19/2024 8:00 AM EST Treatment [facility] [address] [phone] Kayce Walker, PT 05/26/2024 8:00 AM EST Treatment [facility] [address] [phone] Kayce Walker, PT 06/09/2024 8:00 AM EST Treatment [facility] [address] [phone] Kayce Walker, PT 06/16/2024 8:00 AM EST Treatment [facility] [address] [phone] Kayce Walker, PT 07/08/2024 8:30 AM EDT [facility] [address] [phone] Archana Woods NP [address] [address] 09/26/2024 11:10 AM EDT Appointment Radiology Department - [address] [phone] 10/29/2024 8:00 AM EDT Office Visit Gastroenterology - [place] 175 [facility] 175 [facility] [address] [place] [address] Yamilka Brice, GEOFF 175 [facility] [address] [place] [address] documented as of this encounter Goals Goal [...] Signed Date: 04/23/2024 09:08 ET Workstation ID: [id number] Transcribed By: Self Edit Transcribed Date: 04/23/2024 [...] Signed Date: 04/23/2024 09:08 ET Workstation ID: [id number] Transcribed By: Self Edit Transcribed Date: 04/23/2024 09:06 ET Mike JEAN IMG XR PROCEDURES documented in this encounter Visit Diagnoses Diagnosis Bilateral thumb pain Encounter for screening mammogram for breast cancer documented in this encounter Care Teams Molder Pipe Covering Relationship Specialty Start Date End Date Maria Dolores Jones MD [address] [place] [address] PCP - General Internal Medicine 12/13/21 documented as of this encounter
== END 2024-05-15 15:42 | disposition home or self-care (01) ==
LOC: HO.HOSX 15:41
PROVIDERS: Visit Provider Physician Assistant
DX: M51.369 Other intervertebral disc degeneration, lumbar region without mention of lumbar back pain or lower extremity pain (principal)
CPT/HCPCS: 72110

== ENCOUNTER 2024-06-19 05:51 | Day surgery (SDC) | payer OTHER, SELFPAY ==
[2024-06-09 15:59] VITALS: BMI 28.4
[2024-06-19] VITALS (15 sets, daily range): BP systolic 119–157; BP diastolic 73–99; PULSE 80–93; RESP 12–19; TEMP 36.5–36.6; O2SAT 90–99
--- NOTE | ~2024-06-19 | FL_ITS ---
EXAMINATION: FL GUIDANCE ONLY HISTORY: c5-7 ACDF COMPARISON: None available. TECHNIQUE: Fluoroscopy time: 5.9 seconds. Cumulative Dose: 1.9094 mGy. DAP: 0.5998 mGym2 Images: 3. FINDINGS: Images demonstrate anterior cervical disc fusion at C5-6 and C6-7. FL/FL guidance in OR IMPRESSION: Fluoroscopy during procedure. Please see procedure report for additional information. Electronically signed by: Ej Mc MD 06/20/2024 03:17 PM NICOL
--- NOTE | 2024-06-19 06:04 | ECG_ITS ---
Test Reason : PREOP Blood Pressure : */* mmHG Vent. Rate : 81 BPM Atrial Rate : 81 BPM P-R Int : 194 ms QRS Dur : 94 ms QT Int : 384 ms P-R-T Axes : 58 -21 28 degrees QTcB Int : 446 ms Normal sinus rhythm Minimal voltage criteria for LVH, may be normal variant ( Naselle product ) Borderline ECG No previous ECGs available Referred By: Kayce Kerns Electronically Signed By: MARLENE BROWN MD
[2024-06-19] MEDS: Scopolamine 1.5 MG PATCH.TD.3 TRANSDERMA (06:33)
[2024-06-19 06:39] LABS: Hematocrit 37.1 % (37.0-47.0); Hemoglobin 12.8 g/dl (12.0-16.0); Mean Corpuscular HGB Conc 34.5 g/dl (31.0-35.0); Mean Corpuscular Hemoglobin 31.4 pg (27.0-33.0); Mean Corpuscular Volume 90.9 fL (80.0-98.0); Mean Platelet Volume 9.5 fL (9.4-12.3); Platelet Count 227 X10*3/uL (160-400); Red Blood Count 4.08 X10*6/uL (4.20-5.50); Red Cell Distribution Width 12.2 % (11.0-16.0)
[2024-06-19] MEDS: Lactated Ringers 1,000 ML 100 ML IVCONT (06:42)
[2024-06-19 06:51] LABS: Anion Gap 13 (12-20); Blood Urea Nitrogen 16 mg/dL (9-16); Calcium 9.2 mg/dL (8.4-10.2); Carbon Dioxide 26 mmol/L (22-29); Chloride 105 mmol/L (96-108); Estimated Glomerular Filt Rate > 60; Glucose Fasting 87 mg/dL (60-99); Potassium 3.7 mmol/L (3.3-5.1); Sodium 140 mmol/L (135-145)
--- NOTE | 2024-06-19 06:59 | P.HPSUR_ITS ---
Pre-Procedural Eval Section A - 24 Hr Update-Section A only Date of Service: 06/19/24 The patient is an INPATIENT: No Changes since office visit: No Cold of Flu in the past 2 weeks, No New Medical Problems, No Changes in Medication and No Patient answered all questions The patient has been examined within 24 hours of the surgical procedure. The History & Physical has been completed within 30 days and I have reviewed it.: No Section B - Complete if H&P > 30 days Chief Complaint: Other spondylosis with radiculopathy, cervical Allergies: Allergies Allergy/AdvReac Type Severity Reaction Status Date / Time erythromycin base Allergy Severe gastritis Verified 06/19/24 06:12 nickel Allergy Severe skin Verified 06/19/24 06:12 erosion shrimp Allergy Severe Itchy Verified 06/19/24 06:12 throat Review of Systems Sugical H&P ROS: Negative: Constitution, Cardiovascular, Respiratory, Neurologi johnna, Psychiatric, Hem-Onc, Allergic/Immunologic, Gastrointestinal, Genitourinary, Musculoskeletal, Integumentary, Endocrine and Eyes/Ears/Nose/Throat Exam Surgical H&P Exam: Normal: HEENT, Normal: Heart, Normal: Lungs, Normal: Extremities, Normal: Abdomen, Normal: Skin and Normal: Neurological (awake, alert,oriented x 3 ) Plan Diagnosis/Plan: Unchanged C5-6, C6-7 anterior cervical diskectomy and fusion Time Spent With Patient Time: Total time managing care of this patient today __5__ minutes.
--- NOTE | 2024-06-19 07:01 | P.DS_ITS ---
DS: Providers Provider Date of Service: 06/19/24 Date of discharge: 06/19/24 Primary care physician: Maria Dolores Jones MD Admitting clinician: Dilan Albrecht DS: Diagnosis Discharge Diagnosis (1) Cervical radiculopathy due to degenerative joint disease of spine: Status: Acute DS: Summary Time Attestation Discharge Coordination Time (in mins): 5 Quality: Safe Use of Opioids Does Pt have an Active Cancer Diagnosis on the Problem List?: No Quality: Stroke Does the patient have a stroke diagnosis?: No Physical Exam Vital Signs: Vital Signs: Last Vital Signs Temp 97.9 F 06/19/24 06:23 Pulse 82 06/19/24 06:23 Resp 15 06/19/24 06:23 BP 147/86 H 06/19/24 06:23 Pulse Ox 97 06/19/24 06:23 O2 Del Method Room Air 06/19/24 06:23 BMI result Body Mass Index 28.4 DS: Data Data Completed and Pending Labs on day of discharge: Laboratory Results - last 24 hr 06/19/24 06:31 WBC 6.0 RBC 4.08 L Hgb 12.8 Hct 37.1 MCV 90.9 MCH 31.4 MCHC 34.5 RDW 12.2 Plt Count 227 MPV 9.5 Absolute Nucleated RBC 0.000 Nucleated RBC % (auto) 0.0 Sodium 140 Potassium 3.7 Chloride 105 Carbon Dioxide 26 Anion Gap 13 BUN 16 Creatinine 0.72 Estim Creat Clear Calc 79.0 Estimated GFR > 60 Fasting Glucose 87 Calcium 9.2 Discharge Plan Discharge Patient Disposition: Home, Self-Care Referrals: Maria Dolores Jones MD [Primary Care Provider] - 1 Week Discharge Medications: New tramadol 50 mg tablet 50 mg PO Q6H PRN (Reason: pain) Qty: 20 0RF docusate sodium [Colace] 100 mg capsule 100 mg PO BID Qty: 20 0RF Continued losartan 50 mg tablet 50 mg PO DAILY cyclobenzaprine 10 mg tablet 10 mg PO BEDTIME bupropion HCl 150 mg tablet sustained-release 12 hr 150 mg PO DAILY trazodone 50 mg tablet 50 mg PO BEDTIME meloxicam 15 mg tablet 15 mg PO DAILY simvastatin 10 mg tablet 10 mg PO BEDTIME melatonin 3 mg tablet 3 mg PO BEDTIME fexofenadine 180 mg tablet 180 mg PO DAILY amlodipine 5 mg tablet 5 mg PO BEDTIME famotidine 20 mg tablet 20 mg PO BEDTIME estradiol 1 mg tablet 1 mg PO DAILY pantoprazole 40 mg tablet,delayed release (DR/EC) 40 mg PO DAILY triamcinolone acetonide 55 mcg aerosol,spray 1 spray intranasal DAILY montelukast 10 mg tablet 10 mg PO BEDTIME gabapentin 100 mg capsule 100 mg PO TID Patient Comments: 100 mg tid and sometimes 300 at bedtime albuterol sulfate [Ventolin HFA] 90 mcg/actuation HFA aerosol inhaler 2 puff inhalation Q6H PRN (Reason: Shortness Of Breath Or Wheezing) escitalopram oxalate 20 mg tablet 20 mg PO DAILY fluticasone propion-salmeterol [Advair HFA] 230-21 mcg/actuation HFA aerosol inhaler 1 inh INHALATION DAILY Asmanex HFA 200 mcg/actuation HFA aerosol inhaler 1 puff INHALATION BID Discharge Orders: Discharge Order (Routine); Ordered 06/19/24 Ordered By: Brayan Azar Diet: Advance to usual diet Activity on Discharge: As tolerated Activity Restrictions/Additional Instructions: After your spinal surgery we ask you to observe the following restrictions/guidelines: Activity: It is normal to feel some discomfort as you increase your activity, but that will improve with time. We ask you avoid heavy lifting or acitivities that cause pain. As a general rule, 8lbs is a safe limit for lifting right after surgery. Walk as much as you feel comfortable but not to exhaustion. You will feel extra tired the first few days after surgery. Stay well hydrated. It is OK to walk up and down stairs You may return to driving when you are off narcotics (such as vicodin, oxycodone, dilaudid, etc), and you are back to normal functional capacity. If you have any concerns please check with office before driving. Return to work is specific to each patient and each surgery, so please speak with your doctor/PA at first follow up. Please bring paperwork such as FMLA at that time if you need it filled out. Medications: For optimum pain control, it is best to start with a combination of 500 mg of Tylenol every 4 hours with 600 mg of Motrin every 8 hours, and use narcotics as needed in between for breakthrough pain. We will give you a short supply of narcotics after surgery (usually one weeks worth). If you need more please call the office but do not use more than prescribed. You will need to give our office 48 hours notice if you need narcotics refilled and we do not fill narcotics on weekends or evenings. If you are on a narcotic, it is a good idea to take a stool softener such as colace or senna to avoid constipation If you take blood thinner such as aspirin, Plavix, Coumadin, Effient, Eliquis etc for conditions such as Afib, DVT, Pulmonary embolus, coronary disease, stents etc please speak with your surgeon about specific details as to when you can resume these medications. You can resume NSAIDs on post op day 1 (eg: Motrin, Naproxen, etc). Follow up: Please call the office, , after surgery to arrange a 3 week follow up for wound check. Wound Care: You may remove your dressing on the first day after surgery. ?You may ?leave open to air. Please do not remove the steri strips underneath. they will fall off on their own in one week. IT IS NORMAL FOR THE WOUND TO OOZE OR BE BLOODY FOR A FEW DAYS AFTER SURGERY. ?IF THIS HAPPENS JUST PLACE NEW DRESSING OVER IT TO AVOID STAINING CLOTHES. You may shower on post op day # 1 We ask that you do not let the water soak the wound. If it does get wet, just towel dry lightly. Please do not scrub your incision or place any type of chemical/ointment on the wound. No tub baths, pools or jacuzzis for one month. If you have any leaking or redness from your wound, or fevers, please call office Print Language: Ukrainian
[2024-06-19] MEDS: Gabapentin 300 MG CAPSULE PO (07:19)
[2024-06-19] MEDS: methocarbamoL 750 MG TABLET PO (07:20)
--- NOTE | 2024-06-19 07:22 | HO.ANESPROP2 ---
Documented by User: Kayce Kerns NP 06/17/24 13:52 HPI - Anesthesia Eval Consult details Narrative: 53yo F for C5-6,C6-7 Ant Cerv Discectomy w/ fusion Pt not seen in PAT. Pt reported to [facility] nurse that she was optimized by PCP with labs and EKG, but this was not done. Will obtain DOS for ACDF and upcoming OLIF PMFSH Active Problems Active Problems: All Active Problems Lumbar degenerative disc disease (Acute) Cervical radiculopathy due to degenerative joint disease of spine (Acute) Past Medical History Medical History Anxiety HLD (hyperlipidemia) GERD (gastroesophageal reflux disease) Back pain IUD (intrauterine device) in place SERVANDO on CPAP Hx of headache Hx of head injury Hx of cardiac murmur Seasonal allergies PONV (postoperative nausea and vomiting) Depression Asthma HTN (hypertension) Surgical History Surgical History Hx of breast surgery History of carpal tunnel release Hx of appendectomy History of Hx of gastric bypass (~2019) Social History Social History (Updated 06/09/24 @ 16:03 by Karol Fagan RN) Household Members: Family Household Members Other:: adult daughter and her fianc? 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 If so, by whom?: No Are you DNR?: No Advance Directives: No Advance Directives Information Provided: Yes Advance Directives on File: No Recently lost weight without trying: No Patient : No : No Poor oral hygiene: No Meds Allergies Allergy/AdvReac Type Severity Reaction Status Date / Time erythromycin base Allergy Severe gastritis Verified 06/19/24 06:12 nickel Allergy Severe skin Verified 06/19/24 06:12 erosion shrimp Allergy Severe Itchy Verified 06/19/24 06:12 throat Home Medications ?Medication ?Instructions ?Recorded ?Confirmed ?Last Taken ?Type albuterol sulfate 90 mcg/actuation 2 puff inhalation Q6H PRN 06/09/24 06/09/24 Unknown History aerosol inhaler (Ventolin HFA) Shortness Of Breath Or Wheezing amlodipine 5 mg tablet 5 mg PO BEDTIME 06/09/24 06/09/24 Unknown History bupropion HCl 150 mg tablet,12 hr 150 mg PO DAILY 06/09/24 06/09/24 Unknown History sustained-release cyclobenzaprine 10 mg tablet 10 mg PO BEDTIME muscle spasm 06/09/24 06/09/24 Unknown History escitalopram oxalate 20 mg tablet 20 mg PO DAILY 06/09/24 06/09/24 Unknown History estradiol 1 mg tablet 1 mg PO DAILY 06/09/24 06/09/24 Unknown History famotidine 20 mg tablet 20 mg PO BEDTIME 06/09/24 06/09/24 Unknown History fexofenadine 180 mg tablet 180 mg PO DAILY 06/09/24 06/09/24 Unknown History fluticasone propionate 230 1 inh inhalation DAILY 06/09/24 06/09/24 06/19/24 05:00 History mcg-salmeterol 21 mcg/actuation HFA inhaler (Advair HFA) gabapentin 100 mg capsule 100 mg PO TID 06/09/24 06/09/24 Unknown History losartan 50 mg tablet 50 mg PO DAILY 06/09/24 06/09/24 Unknown History melatonin 3 mg tablet 3 mg PO BEDTIME 06/09/24 06/09/24 Unknown History meloxicam 15 mg tablet 15 mg PO DAILY 06/09/24 06/09/24 Unknown History mometasone 200 mcg/actuation HFA 1 puff inhalation BID 06/09/24 06/09/24 Unknown History aerosol inhaler (Asmanex HFA) montelukast 10 mg tablet 10 mg PO BEDTIME 06/09/24 06/09/24 Unknown History pantoprazole 40 mg tablet,delayed 40 mg PO DAILY 06/09/24 06/09/24 Unknown History release simvastatin 10 mg tablet 10 mg PO BEDTIME 06/09/24 06/09/24 Unknown History trazodone 50 mg tablet 50 mg PO BEDTIME 06/09/24 06/09/24 Unknown History triamcinolone acetonide 55 mcg 1 spray intranasal DAILY 06/09/24 06/09/24 Unknown History nasal spray aerosol Exam Height,Weight and Vital Signs: Height 5 ft 0.5 in Weight 67.132 kg Assessment and Plan Assessment Anesthesia Assessment: Chart Reviewed Documented by User: Vee King DO 06/19/24 07:24 HPI - Anesthesia Eval Consult details Narrative: 53yo F for C5-6,C6-7 Ant Cerv Discectomy w/ fusion PMFSH Past Medical History Medical History Anxiety HLD (hyperlipidemia) GERD (gastroesophageal reflux disease) Back pain IUD (intrauterine device) in place SERVANDO on CPAP Hx of headache Hx of head injury Hx of cardiac murmur Seasonal allergies PONV (postoperative nausea and vomiting) Depression Asthma HTN (hypertension) Family History Family history of problems with anesthesia: No Surgical History Surgical History Hx of breast surgery History of carpal tunnel release Hx of appendectomy History of Hx of gastric bypass (~2018) History of Problems with Anesthesia: No Social History Social History (Updated 06/09/24 @ 16:03 by Karol Fagan RN) Household Members: Family Household Members Other:: adult daughter and her fianc? 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 If so, by whom?: No Are you DNR?: No Advance Directives: No Advance Directives Information Provided: Yes Advance Directives on File: No Recently lost weight without trying: No Patient : No : No Poor oral hygiene: No Meds Allergies Allergy/AdvReac Type Severity Reaction Status Date / Time erythromycin base Allergy Severe gastritis Verified 03/06/25 06:12 nickel Allergy Severe skin Verified 06/19/24 06:12 erosion shrimp Allergy Severe Itchy Verified 06/19/24 06:12 throat Home Medications ?Medication ?Instructions ?Recorded ?Confirmed ?Last Taken ?Type albuterol sulfate 90 mcg/actuation 2 puff inhalation Q6H PRN 06/09/24 06/09/24 Unknown History aerosol inhaler (Ventolin HFA) Shortness Of Breath Or Wheezing amlodipine 5 mg tablet 5 mg PO BEDTIME 06/09/24 06/09/24 Unknown History bupropion HCl 150 mg tablet,12 hr 150 mg PO DAILY 06/09/24 06/09/24 Unknown History sustained-release cyclobenzaprine 10 mg tablet 10 mg PO BEDTIME muscle spasm 06/09/24 06/09/24 Unknown History escitalopram oxalate 20 mg tablet 20 mg PO DAILY 06/09/24 06/09/24 Unknown History estradiol 1 mg tablet 1 mg PO DAILY 06/09/24 06/09/24 Unknown History famotidine 20 mg tablet 20 mg PO BEDTIME 06/09/24 06/09/24 Unknown History fexofenadine 180 mg tablet 180 mg PO DAILY 06/09/24 06/09/24 Unknown History fluticasone propionate 230 1 inh inhalation DAILY 06/09/24 06/09/24 06/19/24 05:00 History mcg-salmeterol 21 mcg/actuation HFA inhaler (Advair HFA) gabapentin 100 mg capsule 100 mg PO TID 06/09/24 06/09/24 Unknown History losartan 50 mg tablet 50 mg PO DAILY 06/09/24 06/09/24 Unknown History melatonin 3 mg tablet 3 mg PO BEDTIME 06/09/24 06/09/24 Unknown History meloxicam 15 mg tablet 15 mg PO DAILY 06/09/24 06/09/24 Unknown History mometasone 200 mcg/actuation HFA 1 puff inhalation BID 06/09/24 06/09/24 Unknown History aerosol inhaler (Asmanex HFA) montelukast 10 mg tablet 10 mg PO BEDTIME 06/09/24 06/09/24 Unknown History pantoprazole 40 mg tablet,delayed 40 mg PO DAILY 06/09/24 06/09/24 Unknown History release simvastatin 10 mg tablet 10 mg PO BEDTIME 06/09/24 06/09/24 Unknown History trazodone 50 mg tablet 50 mg PO BEDTIME 06/09/24 06/09/24 Unknown History triamcinolone acetonide 55 mcg 1 spray intranasal DAILY 06/09/24 06/09/24 Unknown History nasal spray aerosol Exam Exam Date and Time: 06/19/24 0720 Height,Weight and Vital Signs: Height 5 ft 0.5 in Weight 67.132 kg Vital Signs Temperature 97.9 F 06/19/24 06:23 Pulse Rate 82 06/19/24 06:23 Respiratory Rate 15 06/19/24 06:23 Blood Pressure 147/86 H 06/19/24 06:23 Pulse Oximetry 97 06/19/24 06:23 Oxygen Delivery Method Room Air 06/19/24 06:23 Temperature 97.9 F 06/19/24 06:23 Pulse Rate 82 06/19/24 06:23 Respiratory Rate 15 06/19/24 06:23 Blood Pressure 147/86 H 06/19/24 06:23 Pulse Oximetry 97 06/19/24 06:23 Oxygen Delivery Method Room Air 06/19/24 06:23 Airway Mallampati Class: I TM Dist: >3cm Neck ROM: Limited Loose/Missing/Broken Teeth: No (patient denies any loose or broken teeth) Heart: S1S2 Lungs: CTAB Assessment and Plan Assessment Anesthesia Assessment: Anesthesia Plan Discussed and Chart Reviewed Final Anesthetic Review Family History of Problems with Anesthesia: No History of Problems with Anesthesia: No NPO: Yes ASA Class: II Final Preanesthetic Review: No Changes in Pt Med Stat, Meds/Allgs Chart Reviewed, Consent Obtained/Reviewed and Anes Risks/Benef Reviewed Patient Risk: Low Procedure Risk: Intermediate Anesthetic Plan Anesthetic Plan: GA and Agree w/ Assess. and Plan Disposition: Standard PACU
[2024-06-19] MEDS: Acetaminophen 1,000 MG/100 ML PIGGYBACK 400 MG IV (07:25)
[2024-06-19] MEDS: ceFAZolin Sodium/Dextrose,Iso 2 GM/50 ML PIGGYBACK IV (07:25)
--- NOTE | 2024-06-19 09:15 | P.OP_ITS ---
Operative Note Operative Note Date of Service: 06/19/24 Narrative: Preoperative Diagnosis: Cervical radiculopathy, left side Procedure: C5-6, C6-7 Anterior discectomy, arthrodesis and implantation cage ; C5-C7 anterior instrumentation ; local autograft; microscope Informed Consent was obtained for this operation. I have explained the nature, purpose and benefits of the operation. I have discussed the risks and benefit of the operation including possible complications or adverse events with patient/family. Alternative(s) were discussed with the patient with their relative benefits and risks as well as the consequences of not accepting the operation were included in obtaining consent. Surgeon: YUDI JAIN MD, PHD Procedure Assisted By: tutu Liz Description of Procedure: This patient is suffering from a left cervical radiculopathy. An MRI shows cervical degenerative disc disease C5-6 and C6-7 with compression of the left C6 and C7 nerve roots. Patient was offered an anterior diskectomy and fusion of these levels. The procedure complications were explained. The patient was consented. The patient was brought to the operating room and endotracheally intubated. The patient was put in supine position with slight extension of the neck. Prep and drape was done followed by timeout. A mid cervical incision was made followed by opening of the platysma. The prevertebral fascia was reached following the natural planes while the physician carpenter assistant provided manual retraction. The prevertebral fascia was opened to expose the disc space. A spinal needle was placed in the disk space to confirm the correct level with xray. The longus colli muscles were released bilaterally and a self retaining retractor was inserted. It initial diskectomy was done of C5-6 and C6-7 towards the posterior annulus. Two [place] pins were placed in the C5 and C6 vertebral bodies and distraction was give over the interspace. The discectomy was completed toward the posterior annulus of the disc. The microscope was brought in. The remainder of the discectomy was completed. The posterior ligament was opened and resected to expose the underlying dura. Osteophytes were resected from the body of C5 and C6 and saved for autograft. A left C6 foraminotomy was done to decompress the left C6 nerve root.. The endplates were prepared after which a 6 mm cage filled with autograft was inserted into the disc space. A separate attached plate was locked down with 2 x 14 mm screws as anterior instrumentation. Then attention was turned to the C6-7 level where the diskectomy was completed. The posterior longitudinal ligament was of the resected to decompress the underlying dura. A bilateral foraminotomy was done to decompress the exiting nerve roots. A 6 mm cage was inserted filled with autograft saved from the posterior osteophytes. A separate attached plate was locked down with 2 x 12 mm screws. Final x-rays in AP and lateral projection showed a satisfactory position of the implants and anterior instrumentation.. The physician carpenter assistant took over. The [place] pin was removed. Hemostasis was done. He closed the incision in 2 layers with a 3-0 Vicryl. Steri-Strips used to approximate incision. An OpSite with Tegaderm was used to cover the incision. All sponge and needle counts were correct. Patient was extubated and transported in stable is to recovery room. Anesthesia: General Estimated Blood Loss (ml): 35 Duration of Surgery: 1 hour 20 minutes Postoperative Plan: Discharge home Complications: None
[2024-06-19] MEDS: oxyCODONE HCl Immed Release 5 MG TABLET PO (10:06)
[2024-06-19] MEDS: fentaNYL citrate/PF 100 MCG/2 ML VIAL 50 MCG IVPUSH (10:30)
[2024-06-19] MEDS: Ondansetron ODT 4 MG TAB.RAPDIS TRANSLINGU (13:25)
== END 2024-06-19 15:05 | disposition home or self-care (01) ==
PROVIDERS: Nurse Practitioner; PCP Family Medicine; Visit Provider Neurological Surgery
PROC: (CPT 22551; principal; 2024-06-19 07:30)
DX: M47.22 Other spondylosis with radiculopathy, cervical region (principal); M54.2 Cervicalgia; G89.29 Other chronic pain; M79.602 Pain in left arm; M79.601 Pain in right arm; R26.2 Difficulty in walking, not elsewhere classified; I10 Essential (primary) hypertension; J45.909 Unspecified asthma, uncomplicated; F32.A Depression, unspecified; Z79.1 Long term (current) use of non-steroidal anti-inflammatories (NSAID); Z79.51 Long term (current) use of inhaled steroids; Z79.899 Other long term (current) drug therapy; Z98.84 Bariatric surgery status; Z98.890 Other specified postprocedural states; Z88.1 Allergy status to other antibiotic agents
CPT/HCPCS: 22551; 22552; 22853; 20936; 22845; 36415; 80048; 85027; 93005; C1713; C1889; J0131; J0690; J1100; J2003; J2250; J2405; J2704; J3010

== ENCOUNTER → 2024-06-19 05:51 | Outpatient (BNV) | payer OTHER, SELFPAY | PROVIDERS: PCP Family Medicine; Visit Provider Neurological Surgery | DX: M54.12 Radiculopathy, cervical region (principal) | CPT/HCPCS: 20936; 22551; 22552; 22845; 22853; 99499 ==

== ENCOUNTER → 2024-06-19 06:04 | Outpatient (BNV) | payer OTHER, SELFPAY | PROVIDERS: PCP Family Medicine; Visit Provider Internal Medicine Cardiovascular Disease | DX: R94.31 Abnormal electrocardiogram [ECG] [EKG] (principal); M47.22 Other spondylosis with radiculopathy, cervical region | CPT/HCPCS: 93010 ==

== ENCOUNTER 2024-07-07 11:10 | Outpatient (AMB) | payer OTHER, SELFPAY ==
--- NOTE | 2024-07-07 11:22 | HO.SPINEOV ---
Intake Visit Reasons: 1st post op Intake Note: Ms. Hernandez is here today for her 1st post op. Care Support Representative Required: No Allergies erythromycin base Allergy (Severe, Verified 06/19/24 06:12) gastritis nickel Allergy (Severe, Verified 06/19/24 06:12) skin erosion shrimp Allergy (Severe, Verified 06/19/24 06:12) Itchy throat Assessment & Plan Assessment & Plan (1) H/O cervical spine surgery: Code(s): Z98.890 - Other specified postprocedural states Category: Surgical Plan Procedure: C5-6, C6-7 ACDF Priti comes in today for her 1st postoperative visit. She reports she is very satisfied with the surgery and feels much better than she did pre-operatively. She did have some difficulties with posterior neck pain directly after surgery, but states this has largely resolved. She is able to complete full lateral rotation of her neck to the right and left without significant issue. She did raise some concerns regarding the corner of her incision opening up and draining small amounts of fluid over the course of the last few days. She denies at home fever or chills. She did report some issues with anesthesia after surgery, and states that she puked for the 1st couple days after surgery, and feels she had too much medication pre-operatively. She requested that her gabapentin and methocarb be held prior to surgery Sunday for L4-5 OLIF. No new neurological deficits. Patient is able to ambulate well, rises from a seated position without difficulty. Anterior incision site is slightly open on the right lateral edge, pre appears to have scabbed over and there is no active drainage. The patient has no pain to palpation around the incision site. The area is not unusually warm, and there is no notable erythema. We are tentatively planning to complete a L4-5 OLIF on Sunday. I will prescribe a 5 day course of Doxycycline for her due to the small right sided opening described above. I would like her to take 2 doses today and tomorrow, hold dosing the day of surgery and POD:1, then resume the remainder of the Rx on POD:2. I will be here for her surgery Sunday so I will make sure this goes according to plan. I will also DC the pre-op gabapentin and methocarb. Alfie Albrecht MD,PhD [facility] Medications: New doxycycline hyclate 100 mg PO BID 5 days 10 tabs 0RF surgical prophylaxis Coding Level of Care Code Global (54576) Diagnoses H/O cervical spine surgery Z98.890
== END 2024-07-07 12:00 | disposition home or self-care (01) ==
LOC: HO.HNS 11:11
PROVIDERS: PCP Family Medicine; Visit Provider Physician Assistant
DX: Z98.890 Other specified postprocedural states (principal)
CPT/HCPCS: 99024

== ENCOUNTER → 2024-07-07 11:10 | Outpatient (BNVA) | payer OTHER, SELFPAY | PROVIDERS: PCP Family Medicine; Visit Provider Physician Assistant | DX: Z47.89 Encounter for other orthopedic aftercare (principal); Z98.890 Other specified postprocedural states | CPT/HCPCS: 99212 ==

== ENCOUNTER 2024-07-09 07:04 | Inpatient (IN) | payer OTHER, SELFPAY ==
[2024-06-25 09:26] VITALS: BMI 27.7
[2024-07-09] VITALS (15 sets, daily range): BP systolic 113–145; BP diastolic 72–103; PULSE 79–105; RESP 16–20; TEMP 36.1–36.9; O2SAT 92–99; BMI 28.6
--- NOTE | ~2024-07-09 | FL_ITS ---
EXAMINATION: FL GUIDANCE ONLY HISTORY: l4-5 OLIF COMPARISON: Correlation is made with plain films of the lumbar spine dated 05/15/2024. TECHNIQUE: Fluoroscopy time: 1 minute, 40.4 seconds. Cumulative Dose: 55.709 mGy. DAP: 19.87 mGym2 Images: 6. FINDINGS: Images demonstrate posterior fusion of L4 and L5 with pedicle screws, spinal stabilization rods, and an intervertebral spacer. FL/FL guidance in OR IMPRESSION: Fluoroscopy during procedure. Please see procedure report for additional information. Electronically signed by: Ej Mc MD 07/09/2024 10:37 AM EDT
[2024-07-09] MEDS: Lactated Ringers 1,000 ML 50 ML IVCONT (06:37)
--- NOTE | 2024-07-09 07:03 | MHC.SHP ---
Pre-Procedural Eval Section A - 24 Hr Update-Section A only Date of Service: 07/09/24 Section B - Complete if H&P > 30 days Chief Complaint: s/p L4-5 OLIF Allergies: Allergies Allergy/AdvReac Type Severity Reaction Status Date / Time erythromycin base Allergy Severe gastritis Verified 06/19/24 06:12 nickel Allergy Severe skin Verified 06/19/24 06:12 erosion shrimp Allergy Severe Itchy Verified 06/19/24 06:12 throat Review of Systems Sugical H&P ROS: Negative: Constitution, Cardiovascular, Respiratory, Neurological, Psychiatric, Hem-Onc, Allergic/Immunologic, Gastrointestinal, Genitourinary, Musculoskeletal, Integumentary, Endocrine and Eyes/Ears/Nose/Throat Exam Surgical H&P Exam: Not Evaluated: HEENT, Not Evaluated: Heart, Not Evaluated: Lungs, Not Evaluated: Extremities, Not Evaluated: Abdomen, Not Evaluated: Skin and Not Evaluated: Neurological Exam Comment: The patient is awake, alert, no acute distress. Proposed surgical incision site is clean, dry, with no signs of recent surgery or trauma. Plan Diagnosis/Plan: Unchanged I have reviewed the history and physical and performed a pertinent physical examination on my patient. No changes have occurred unless specified. PLAN REMAINS THE SAME, L4-5 OLIF. Time Spent With Patient Time: Total time managing care of this patient today __14__ minutes.
--- NOTE | 2024-07-09 07:24 | HO.ANESPROP2 ---
[facility] Active Problems Active Problems: All Active Problems H/O cervical spine surgery (Acute) Lumbar degenerative disc disease (Acute) Cervical radiculopathy due to degenerative joint disease of spine (Acute) Past Medical History Medical History History of intussusception of intestine Arthritis Umbilical hernia Anxiety HLD (hyperlipidemia) GERD (gastroesophageal reflux disease) Back pain IUD (intrauterine device) in place SERVANDO on CPAP Hx of headache Hx of head injury Hx of cardiac murmur Seasonal allergies PONV (postoperative nausea and vomiting) Depression Asthma HTN (hypertension) Family History Family history of problems with anesthesia: No Surgical History Surgical History Hx of cervical discectomy Hx of breast surgery History of carpal tunnel release Hx of appendectomy History of Hx of gastric bypass (~2018) History of Problems with Anesthesia: No Social History Social History (Updated 06/09/24 @ 16:03 by Karol Fagan RN) Household Members: Family Household Members Other:: adult daughter and her fianc? Housing: House Are you a primary healthcare architect to a significant other at home: No Do you presently have visiting nurse or other home services: No Patient Tobacco Use Status: Never used Tobacco Use of substances other than those prescribed or required for medical reasons: No Have you been hit, kicked, punched, or otherwise hurt by someone within the past year? If so, by whom?: No Are you DNR?: No Advance Directives: No Advance Directives Information Provided: No Advance Directives on File: No Recently lost weight without trying: No Eating poorly because of decreased appetite: No Nutrition Risks: No Nutritional Risk Patient : No (Tubal ligation 2013) : No Poor oral hygiene: Yes (upper bridge) Meds Allergies Allergy/AdvReac Type Severity Reaction Status Date / Time erythromycin base Allergy Severe gastritis Verified 06/19/24 06:12 nickel Allergy Severe skin Verified 06/19/24 06:12 erosion shrimp Allergy Severe Itchy Verified 06/19/24 06:12 throat Active Medications: Current Medications Lactated Ringer's (Lr) 1,000 mls @ 50 mls/hr IVCONT .Q20H LANI Last Admin: 07/09/24 06:37 Dose: 50 mls/hr Home Medications ?Medication ?Instructions ?Recorded ?Confirmed ?Last Taken ?Type albuterol sulfate 90 mcg/actuation 2 puff inhalation Q6H PRN 06/09/24 06/25/24 Unknown History aerosol inhaler (Ventolin HFA) Shortness Of Breath Or Wheezing amlodipine 5 mg tablet 5 mg PO BEDTIME 06/09/24 06/25/24 Unknown History bupropion HCl 150 mg tablet,12 hr 150 mg PO BEDTIME 06/09/24 06/25/24 Unknown History sustained-release cyclobenzaprine 10 mg tablet 10 mg PO BEDTIME PRN muscle spasm 06/09/24 06/25/24 Unknown History escitalopram oxalate 20 mg tablet 20 mg PO BEDTIME 06/09/24 06/25/24 Unknown History estradiol 1 mg tablet 2 mg PO DAILY 06/09/24 06/25/24 Unknown History famotidine 20 mg tablet 20 mg PO BEDTIME 06/09/24 06/25/24 Unknown History fexofenadine 180 mg tablet 180 mg PO DAILY 06/09/24 06/25/24 Unknown History fluticasone propionate 230 2 inh inhalation DAILY 06/09/24 06/25/24 06/19/24 05:00 History mcg-salmeterol 21 mcg/actuation HFA inhaler (Advair HFA) losartan 50 mg tablet 100 mg PO DAILY 06/09/24 06/25/24 Unknown History montelukast 10 mg tablet 10 mg PO BEDTIME 06/09/24 06/25/24 Unknown History pantoprazole 40 mg tablet,delayed 40 mg PO DAILY 06/09/24 06/25/24 Unknown History release simvastatin 10 mg tablet 10 mg PO BEDTIME 06/09/24 06/25/24 Unknown History trazodone 50 mg tablet 50 mg PO BEDTIME 06/09/24 06/25/24 Unknown History triamcinolone acetonide 55 mcg 1 spray intranasal DAILY 06/09/24 06/25/24 Unknown History nasal spray aerosol acetaminophen 500 mg tablet 500 mg PO Q6H PRN Pain 06/25/24 06/25/24 Unknown History (Acetaminophen Extra Strength) ibuprofen 200 mg tablet 600 mg PO Q6H PRN Pain 06/25/24 06/25/24 Unknown History Exam Height,Weight and Vital Signs: Height 5 ft 1 in Weight 68.6 kg Last Vital Signs Temp 97.9 F 07/09/24 06:17 Pulse 92 07/09/24 06:17 Resp 16 07/09/24 06:17 BP 145/103 H 07/09/24 06:17 Pulse Ox 98 07/09/24 06:17 O2 Del Method Room Air 07/09/24 06:17 Airway Mallampati Class: II (top teeth fused together) TM Dist: >3cm Neck ROM: Full Heart: rrr Lungs: cta Assessment and Plan Assessment Anesthesia Assessment: Anesthesia Plan Discussed and Chart Reviewed Final Anesthetic Review Family History of Problems with Anesthesia: No History of Problems with Anesthesia: No NPO: Yes ASA Class: II Final Preanesthetic Review: No Changes in Pt Med Stat, Meds/Allgs Chart Reviewed and Consent Obtained/Reviewed Patient Risk: Low Procedure Risk: Intermediate Anesthetic Plan Anesthetic Plan: GA Disposition: Standard PACU
[2024-07-09] MEDS: ceFAZolin Sodium/Dextrose,Iso 2 GM/50 ML PIGGYBACK IV ×3 (07:55→20:47)
[2024-07-09] MEDS: Acetaminophen 1,000 MG/100 ML PIGGYBACK 400 MG IV (08:15)
--- NOTE | 2024-07-09 09:45 | P.OP_ITS ---
Operative Note Operative Note Date of Service: 07/09/24 Narrative: Preop Diagnosis: 1.) Lumbar degenerative disc disease L4-5 2.) Chronic back pain Procedure: 1) L4-5 discectomy, arthrodesis and implantation cage through an anterolateral, retroperitoneal approach 2) L4-5 posterior instrumented fusion 3) allograft 4) Injection of 10 cc of Exparel at the bilateral L5 transverse process for a muscular erector spinae block and additional Exparel in paravertebral tissue for postop management Consent Informed Consent was obtained for this operation. I have explained the nature, purpose and benefits of the operation. I have discussed the risks and benefit of the operation including possible complications or adverse events with patient/family. Alternative(s) were discussed with the patient with their relative benefits and risks as well as the consequences of not accepting the operation were included in obtaining consent. Surgeon: YUDI JAIN MD, PHD Procedure Assisted By: Alfie Rey PA-C Description of Procedure This 53-year-old female is suffering from chronic low back pain. MRI shows severe lumbar degenerative disc disease L4-5while the other levels are normal. The patient was offered an oblique lumbar interbody fusion L4-5. The procedure and complications were explained. The patient was consented. The patient was brought to the operating room and endotracheally intubated. The patient was turned in a lateral position with the left side up. Prep and drape was done followed by timeout. A small incision was made in the left lower abdominal quadrant. The muscle fascia was opened after which the 3 muscle layer was split to enter the retroperitoneal space. Dilators were docked in the anterior one third of the L4-5 disc space followed by a retractor. The retractor was opened. The L4-5 disc space was exposed. An annulotomy was done after which an elevator Queen was used to release the disc material from its endplates and to perforate the contralateral side. The disc was that much collapsed that I had to use a 7 mm trial to further open up the disc space. Disc material was removed. The endplates were prepared. An 8 x 45 mm with a 0 degree lordosis 4 web cage filled with allograft was inserted into the disc space under fluoroscopic guidance. Th is resulted in distraction of the L4-5 disc space. The retractor was removed. Hemostasis was done. The incision was closed in 2 layers. Steri-Strips used to approximate incision. An OpSite with Tegaderm was used to cover the incision. This marked first part of the procedure. The patient was turned prone on the Dixon spine table. 2C arms were installed for fluoroscopy. Prep and drape was done followed by a second timeout. Injection of 10 cc of Exparel at the bilateral L5 transverse processi for a muscular erector spinae block. Two paramedian incisions were made lateral from the L4 and L5 pedicles. The muscle fascia was opened after which the muscle layer was split bluntly to expose the posterolateral gutter. The following steps were taken. A pediguard tap was used to create a transpedicular trajectory into the vertebral body. A K wire was placed. A specially designed instrument was advanced over the K wire to decorticate the posterolateral gutter in preparation for the posterolateral fusion. A pedicle screw was advanced over the K wire and the K wire was removed. The steps were done for the bilateral L4 and L5 pedicles. A total of 4 screws were placed with a diameter of 6.5 x 40 mm. Pedicle screws were connected with 45 mm kristin bilaterally and locked down with locking caps. The extension towers were removed. The posterolateral gutter was filled with allograft to complete the posterolateral L4-5 fusion Hemostasis was done and the incision was closed in 2 layers. Steri-Strips were used to approximate the incision. An OpSite with tegaderm was used to cover the incision. All sponge and needle counts were correct. Patient was extubated and transferred in stable is to recovery room. Anesthesia: General Estimated Blood Loss (ml): 20 Duration of Surgery: 2 hours Complications: None Postoperative Plan: Admit to inpatient for clinical observation
[2024-07-09] MEDS: fentaNYL citrate/PF 100 MCG/2 ML VIAL 50 MCG IVPUSH ×2 (10:30→10:49)
[2024-07-09] MEDS: Ketorolac Tromethamine 15 MG/ML VIAL IVPUSH ×2 (11:03→17:07)
[2024-07-09] MEDS: Acetaminophen 325 MG TABLET 975 MG PO ×2 (14:11→20:47)
[2024-07-09] MEDS: ondansetron HCL 4 MG/2 ML VIAL IVPUSH ×2 (14:11→21:02)
[2024-07-09] MEDS: 0.9 % Sodium Chloride 1,000 ML 75 ML IVCONT (14:11)
--- NOTE | 2024-07-09 14:16 | PHA.MEDREC ---
Addendum entered by Jennyfer Villegas RPh 07/09/24 14:20: reviewed by [facility]. Original Note: Pharmacy Consult ? Medication Reconciliation Pharmacy has completed the medication reconciliation. Spoke with patient and she utilized a list on her phone to confirm her medications. Patient states she still uses the Gabapentin 100mg tabs, taking 1 tab three times a day. The patient confirmed she got an over-abundance of it and still has at lot at home . She confirmed she took her Simvastatin, Montelukast, Wellbutrin, Fexofenidine and Amlodipine yesterday and everything else was taken 2 days ago.
[2024-07-09] MEDS: Docusate Sodium 100 MG CAPSULE PO (20:41)
[2024-07-09] MEDS: Montelukast Sodium 10 MG TABLET PO (20:47)
[2024-07-09] MEDS: methocarbamoL 750 MG TABLET PO (20:47)
[2024-07-09] MEDS: amLODIPine Besylate 5 MG TABLET PO (20:48)
[2024-07-09] MEDS: buPROPion HCl XL 150 MG TAB.ER.24H PO (20:48)
[2024-07-09] MEDS: Famotidine 20 MG TABLET PO (20:48)
[2024-07-09] MEDS: Escitalopram Oxalate 20 MG TABLET PO (20:48)
[2024-07-09] MEDS: Atorvastatin Calcium 10 MG TABLET PO (20:48)
[2024-07-10] MEDS: ceFAZolin Sodium/Dextrose,Iso 2 GM/50 ML PIGGYBACK IV (01:33)
[2024-07-10] MEDS: Ketorolac Tromethamine 15 MG/ML VIAL IVPUSH ×3 (01:33→11:06)
[2024-07-10] MEDS: 0.9 % Sodium Chloride 1,000 ML 75 ML IVCONT (01:39)
[2024-07-10 03:44] VITALS: BP 132/75; PULSE 89; RESP 18; TEMP 36.3; O2SAT 98
[2024-07-10] MEDS: Omeprazole 20 MG CAPSULE.DR PO (05:49)
[2024-07-10 07:26] VITALS: BP 127/77; PULSE 92; RESP 18; TEMP 36.7; O2SAT 98
[2024-07-10] MEDS: ondansetron HCL 4 MG/2 ML VIAL IVPUSH (07:59)
--- NOTE | 2024-07-10 08:00 | HO.POSTANES ---
Post Anesthesia Evaluation Post Anesthesia Evaluation Date of Service: 07/10/24 Vital Signs: Vital Signs Temp Pulse Resp BP Pulse Ox O2 Del Method 07/10/24 07:26 98.0 F 92 18 127/77 98 Room Air 07/10/24 03:44 97.3 F 89 18 132/75 98 Room Air Anesthesia: General Endotracheal-GETA Mental Status: Awake Pain Control: Satisfactory Nausea/Vomiting: None Hydration: Adequate Anesthesia-Related Issues: No Anes. Related Issues
[2024-07-10] MEDS: Acetaminophen 325 MG TABLET 975 MG PO (08:07)
[2024-07-10 08:47] VITALS: PULSE 89; RESP 16; O2SAT 97
[2024-07-10] MEDS: Fluticasone/Vilanterol 200/25 BLST.W.DEV 1 PUFF INHALE (08:47)
--- NOTE | 2024-07-10 08:57 | MHC.CM.PN ---
CM met with Patient at bedside. Patient lives in a house with her adult Daughter and her Daughter's Fiance and PT is recommending Outpatient PT & a cane; CM has initiated and will follow for dc planning.Patient has been provided with the [address] [place] [address] booklet to research community resources, per her request. PCP is Dr. Jones and Daughter will transport to home at time of dc.
--- NOTE | 2024-07-10 09:11 | P.DS_ITS ---
DS: Providers Provider Date of Service: 07/10/24 Date of admission: 07/09/24 07:04 Date of discharge: 07/10/24 Primary care physician: Maria Dolores Jones MD DS: Summary Time Attestation Discharge Coordination Time (in mins): 12 Quality: Safe Use of Opioids Does Pt have an Active Cancer Diagnosis on the Problem List?: No Quality: Stroke Does the patient have a stroke diagnosis?: No Physical Exam Vital Signs: Vital Signs: Last Vital Signs Temp 98.0 F 07/10/24 07:26 Pulse 89 07/10/24 08:47 Resp 16 07/10/24 08:47 BP 127/77 07/10/24 07:26 Pulse Ox 98 07/10/24 07:26 O2 Del Method Room Air 07/10/24 07:26 O2 Flow Rate 2 07/09/24 11:34 BMI result Body Mass Index 28.6 Discharge Plan Discharge Anticipated Discharge Date/Time: 07/10/24 09:12 Patient Disposition: Home, Self-Care Discharge Diagnosis: s/p L4-5 OLIF Referrals: Maria Dolores Jones MD [Primary Care Provider] - 1 Week Discharge Medications: New ondansetron 4 mg tablet,disintegrating 4 mg PO Q8H Qty: 21 0RF methocarbamol 750 mg tablet 750 mg PO QID Qty: 28 1RF docusate sodium 100 mg capsule 100 mg PO BID Qty: 14 1RF Continued losartan 50 mg tablet 100 mg PO DAILY bupropion HCl 150 mg tablet sustained-release 12 hr 150 mg PO BEDTIME trazodone 50 mg tablet 50 mg PO BEDTIME simvastatin 10 mg tablet 10 mg PO BEDTIME fexofenadine 180 mg tablet 180 mg PO DAILY amlodipine 5 mg tablet 5 mg PO BEDTIME famotidine 20 mg tablet 20 mg PO BEDTIME estradiol 1 mg tablet 2 mg PO DAILY pantoprazole 40 mg tablet,delayed release (DR/EC) 40 mg PO DAILY@0630 montelukast 10 mg tablet 10 mg PO BEDTIME escitalopram oxalate 20 mg tablet 20 mg PO BEDTIME fluticasone propion-salmeterol [Advair HFA] 230-21 mcg/actuation HFA aerosol inhaler 2 inh INHALATION DAILY acetaminophen [Acetaminophen Extra Strength] 500 mg Tablet 1,000 mg PO Q6H PRN (Reason: Pain) gabapentin 100 mg capsule 100 mg PO TID Held docusate sodium [Colace] 100 mg capsule 100 mg PO BID Qty: 20 0RF Hold Instructions: Resume on 07/17/24. Patient reports she is out of this medication ibuprofen 200 mg Tablet 600 mg PO Q6H PRN (Reason: Pain) Hold Instructions: Resume on 07/17/24. Patient reports she is out of this medication, will buy more OTC Discharge Orders: Discharge Order (Routine); Ordered 07/10/24 Ordered By: Alfie Rey Diet: Advance to usual diet Activity on Discharge: As tolerated Stand Alone Forms: Patient Portal Discharge page Print Language: Frisian Activity Restrictions/Additional Instructions: After your spinal surgery we ask you to observe the following restrictions/guidelines: Activity: It is normal to feel some discomfort as you increase your activity, but that will improve with time. We ask you avoid heavy lifting or acitivities that cause pain. As a general rule, 8lbs is a safe limit for lifting right after surgery. Walk as much as you feel comfortable but not to exhaustion. You will feel extra tired the first few days after surgery. Stay well hydrated. It is OK to walk up and down stairs You may return to driving when you are off narcotics (such as vicodin, oxycodone, dilaudid, etc), and you are back to normal functional capacity. If you have any concerns please check with office before driving. Return to work is specific to each patient and each surgery, so please speak with your doctor/PA at first follow up. Please bring paperwork such as FMLA at that time if you need it filled out. Medications: We recommend you take 1,000mg Tylenol every 8 hours for the first few weeks after surgery, if you do not have any liver issues and can tolerate this medication. Do not exceed 4,000mg daily. We usually give a short supply of narcotics after surgery to control pain, however you requested muscle relaxers be sent in instead. We have sent in a course of methocarbamol (Robaxin) to the pharmacy. This has 1 refill available if you require more. If you take blood thinner such as aspirin, Plavix, Coumadin, Effient, Eliquis etc for conditions such as Afib, DVT, Pulmonary embolus, coronary disease, stents etc please speak with your surgeon about specific details as to when you can resume these medications. You can resume NSAIDs on post op day 1 (eg: Motrin, Naproxen, etc). Follow up: Please call the office, , after surgery to arrange a 3 week follow up for wound check. Wound Care: You may remove your dressing on the first day after surgery. ?You may ?leave open to air. Please do not remove the steri strips underneath. they will fall off on their own in one week. IT IS NORMAL FOR THE WOUND TO OOZE OR BE BLOODY FOR A FEW DAYS AFTER SURGERY. ?IF THIS HAPPENS JUST PLACE NEW DRESSING OVER IT TO AVOID STAINING CLOTHES. You may shower on post op day # 1 We ask that you do not let the water soak the wound. If it does get wet, just towel dry lightly. Please do not scrub your incision or place any type of chemical/ointment on the wound. No tub baths, pools or jacuzzis for one month. If you have any leaking or redness from your wound, or fevers, please call the office. Care Plan Goals: Return to normal activity as tolerated Health Concerns: None Plan of Treatment: Follow-up in clinic in 2-3 weeks Assessment: POD: 1 Procedure: L4-5 OLIF Priti is a pleasant 53-year-old female who underwent L4-[address] Albrecht yesterday. She was seen lying in bed on the [address] [place] [address] medical/telemetry unit this morning. She reports she is up walking around is otherwise doing well. She feels her symptoms are much better than pre-operatively. She still reports mild pain in her low back, with good relief with Tylenol and methocarbamol. She does still have quite a bit of nausea particularly with ambulation. She reports that physical therapy came to see her this morning and provided her with a cane primarily to support herself during transfers. She is voiding well, tolerating diet. Afebrile, vital signs stable. Strength is full in her bilateral lower extremities. Back dressings and anterolateral dressing have some staining without signs of hematoma. No active sanguineous drainage. Area is dry. Plan: Pleasant 53-year-old female who underwent L4-[address] Albrecht yesterday. She is progressing normally, but continues to have some difficulties with nausea. Her pain appears to be well controlled with Tylenol and methocarbamol. I will send in a prescription for methocarbamol, ondansetron, and a stool softener per her request. She meets criteria to be medically discharged home, I will place the orders. This plan was discussed with the attending neurosurgeon Dr. Albrecht who understands and agrees. Alfie Albrecht MD,PhD [facility]
--- NOTE | 2024-07-10 09:23 | MHC.CM.PN ---
Patient has been medically cleared for dc to home today, self care.
[2024-07-10] MEDS: Docusate Sodium 100 MG CAPSULE PO (11:07)
[2024-07-10] MEDS: Losartan Potassium 50 MG TABLET 100 MG PO (11:07)
[2024-07-10] MEDS: estradioL 0.5 MG TABLET 2 MG PO (11:07)
[2024-07-10] MEDS: Loratadine 10 MG TABLET PO (11:08)
[2024-07-10 11:40] VITALS: BP 120/70; PULSE 87; RESP 18; TEMP 36.5; O2SAT 99
== END 2024-07-10 14:45 | disposition home or self-care (01) | DRG 304 ==
LOC: HO.SSSA 07:04 → HO.IMC 12:17
PROVIDERS: Admitting Provider Neurological Surgery; PCP Family Medicine; Visit Provider Neurological Surgery
PROC: 0SG00A0 Fusion of Lumbar Vertebral Joint with Interbody Fusion Device, Anterior Approach, Anterior Column, Open Approach (ICD-10-PCS; principal; 2024-07-09 07:30)
DX: M51.369 Other intervertebral disc degeneration, lumbar region without mention of lumbar back pain or lower extremity pain (principal); G47.33 Obstructive sleep apnea (adult) (pediatric); M47.22 Other spondylosis with radiculopathy, cervical region; Z79.51 Long term (current) use of inhaled steroids; Z98.84 Bariatric surgery status; Z79.899 Other long term (current) drug therapy
CPT/HCPCS: 86850; 86900; 86901; 94640; 97162; C1713; C1889; J0131; J0665; J0666; J0690; J1100; J1885; J2003; J2250; J2405; J2704; J3010; L8699

== ENCOUNTER → 2024-07-09 07:04 | Outpatient (BNV) | payer OTHER, SELFPAY | PROVIDERS: Admitting Provider Neurological Surgery; PCP Family Medicine; Visit Provider Neurological Surgery | DX: M51.360 Other intervertebral disc degeneration, lumbar region with discogenic back pain only (principal) | CPT/HCPCS: 20930; 22558; 22612; 22840; 22853; 99499 ==

== ENCOUNTER 2024-08-11 13:28 | Outpatient (AMB) | payer OTHER, SELFPAY ==
--- NOTE | 2024-08-11 13:30 | A.SPINEOV_ITS ---
Intake Visit Reasons: 1st post op Intake Note: Ms. Hernandez is here today for her 1st post op. Solution Specialist Required: No Allergies erythromycin base Allergy (Severe, Verified 08/11/24 13:30) gastritis nickel Allergy (Severe, Verified 08/11/24 13:30) skin erosion shrimp Allergy (Severe, Verified 08/11/24 13:30) Itchy throat Assessment & Plan Assessment & Plan (1) S/P spinal fusion: Code(s): Z98.1 - Arthrodesis status Category: Medical Plan Priti comes in today for her 1st postoperative visit after having a L4-[address] Albrecht. She has been doing remarkably well since her surgery, and did not take any narcotics after her surgery. She did use some m ethocarbamol muscle relaxers for flare-ups of pain. She reports that her pain is down to about a 4-5/10 with activity, prior to surgery it was a 9/10. Those reported pain numbers are without any medication. If she does take some Tylenol or ibuprofen she is able to get her pain near to zero. She reports she has been completing her ADLs without much issue, is ambulating around her home and outsi [place] regularly, in his completing stairs without significant trouble. She asked several questions regarding the postoperative healing course all of which I answered to the best of my ability. No new neurological deficits. The patient ambulates well and rises from seated position without difficulty. She uses no assistive devices. Her posterior and anterolateral incision sites are closed and well healing. I would like Priti to follow up with us again in 6 weeks with a set of x-rays. I will send in a prescription for methocarbamol to her pharmacy in [place] per her request for any further flare-ups of pain. Alfie Albrecht MD,PhD [facility] Medications: New methocarbamol 750 mg PO QID 28 tabs 0RF Coding Level of Care Code Global (30147) Diagnoses S/P spinal fusion Z98.1
--- OUTSIDE RECORDS SUMMARY | 2024-08-11 16:03 | XMS_ITS ---
Author Name [facility] Organization Unknown Encounters Encounter Type Encounter Reason Primary Diagnosis Location Date Ambulatory [facility] 01/25/2024 Care Team Organization Name Specialty Phone Email Start Date End Da te [facility] [id number]
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
--- OUTSIDE RECORDS SUMMARY | 2024-08-11 16:03 | XMS_ITS | Encounter Summary ---
Author Organization [facility] Address [address] [place] [address] Care Team Providers Care Moving Worker Name Role Phone Maria Dolores Jones MD Primary Care Provider Reason for Referral * Imaging (Routine) - Authorized Specialty Diagnoses / Procedures Referred By Contac t Referred To Contact Radiology Diagnoses Bloating Procedures NM Hepatobiliary System Imaging W Drug Ashley Barron MD [address] [address] Phone: tel: fax: [facility] CT Scan [address] [place] [address] Phone: tel: Referral ID Status Reason Start Date Expiration Date V isits Requested Visits Authorized [id number] Authorized 08/11/2024 08/11/2025 1 1 Reason for Visit * Reason Comments Consult Consult restarting silvestre mcmullen Encounter Details Date Type Department Care Team ([facility] st Contact Info) Description 08/11/2024 8:45 AM EDT Consult Bariatric Surgery - [place] [address] [address] Ashley Barron MD [address] [address] S/P bariatric surgery (Primary Dx); Bloating; Diarrhea, unspecified type; Gastroesophageal reflux disease, unspecified whether esophagitis present; Umbilical hernia without obstruction and without gangrene Social History Tobacco Use Types Packs/Day Years [...] Orientation Straight 02/26/2024 2: 42 PM EST documented as of this encounter Last Filed Vital Signs Vital Sign Reading Time Taken Comments Blood Pressure 150/102 08/11/2024 8:40 AM EDT Pulse 86 08/11/2024 8:40 AM EDT Temperature 36.7 ??C (98.1 ??F) 08/11/2024 8:40 AM ED T Respiratory Rate - - Oxygen Saturation - - Inhaled Oxygen Concentration - - Weight 70.3 kg (155 lb) 08/11/2024 8:40 AM EDT Height 154.9 cm (5' 1 ) 08/11/2024 8:40 AM EDT Body Mass Index 29.29 08/11/2024 8:40 AM EDT documented in this encounter Ordered Prescriptions Prescription Sig Dispense Quantity Refills Last Filled Start Date End Date rifAXIMin (Xifaxan) 550 mg tablet Take 1 tablet (550 mg total) by mouth 3 (three) times a day for 14 days. 42 tablet 08/11/2024 08/25/2024 documented in this encounter Progress Notes * Ashley Barron MD - 08/11/2024 8:45 AM EDT HPI: Priti Hernandez is a 53 y.o. year old female who presents to discuss weight loss. She underwent a gastric bypass in 02/2021, complicated by an internal hernia. Last seen (via telehealth) on 08/13/2020, at which time her weight was about 156 lbs, per patient report. Preop weight: 184 lbs She has been doing well. Has had a recent cervical and lumbar discectomy and fusion on June 19 and July 09. So she has been healing from this. Has been unfortunately less mobile due to recovery fromher surgery. Tries to continue to walk as much as she can but has been unable to do her usual activity which is golfing. She has also noticed some more epigastric abdominal pain and bloating since the surgery. Has not taken any narcotics postop, was taking Tylenol and ibuprofen. This is associated with some increasing reflux. Has been on Protonix and Pepcid as well as Pepto-Bismol. Symptoms improved when she eats bread and oatmeal. Worse with coffee, meat, chicken. Has been taking Gas-X which does not help much. Is eating quite a bit of fiber, fruits and veggies, flaxseeds, Bruno seeds. She is also lactose intolerant so drinks soy or lactaid which feels good. Feels a restriction if she overeats Since surgery as well as has had ongoing of diarrhea, sometimes watery. This has been improving, stools are now soft. She has also noticed an umbilical hernia which is small, occasionally causing pain but she is able to reduce it. Fluids: adequate Diet: always difficult to tolerate meat, fish. Doing more plant based proteins. Weight change since preop: 184-155= -29 lbs 143 was lowest weight while golfing Comorbidities: -DM-resolved -GERD-seeing GI, rec lifestyle changes, and cont PPI -HTN- took her meds today-losartan Any limitations/disabilities precluding exercise: recent surgery Current exercise regimen: golfing, 4 times a week, walking a lot ROS: GENERAL: No malaise, significant unintentional weight loss, fever, chills or night sweats. RESPIRATORY: No cough, wheezing or shortness of breath. No dyspnea on exertion. CARDIOVASCULAR: No chest pain, leg swelling or palpitations. GI: + abdominal discomfort, - nausea, - vomiting, + change in bowel habits. + reflux. SKIN: No lesions, rash or itching. HEMATOLOGY/LYMPHOLOGY No prolonged bleeding, easy bruisability or swollen nodes. The remainder of the review of systems is unremarkable PAST MEDICAL HISTORY: Patient Active Problem List Diagnosis Abnormal mammogram Adjustment disorder with mixed anxiety and depressed mood Allergic conjunctivitis of both eyes Allergic rhinitis Carpal tunnel syndrome DM (diabetes mellitus), type 2 with neurological complications ([facility] V24, [facility] V28) Eating disorder, unspecified Elevated glucose Facet arthropathy, lumbar Hypertension Hypercholesterolemia Migraines Moderate persistent asthma without complication Obstructive sleep apnea hypopnea, mild Palpitations Post-traumatic headache, not intractable Recurrent sinusitis Spina bifida of lumbar region (CMS/HCC V24, CMS/HCC V28) Sprain of lumbosacral joint or ligament Umbilical hernia without obstruction and without gangrene Hypertriglyceridemia Class 1 obesity due to excess calories with serious comorbidity and body mass index (BMI) of 30.0 to 30.9 in adult Lumbar facet joint syndrome Sacroiliac joint dysfunction PAST SURGICAL HISTORY: Past Surgical History: Procedure Laterality Date APPENDECTOMY 2000 PROCEDURE: HISTORICAL APPENDECTOMY BREAST SURGERY 2003 PROCEDURE: MT UNLISTED PROCEDURE BREAST; COMMENT: Augmentation CARPAL TUNNEL RELEASE Bilateral PROCEDURE: MT NEUROPLASTY &/TRANSPOS MEDIAN NRV CARPAL TUNNE SECTION 2005, 1998, 2012 PROCEDURE: HISTORICAL DELIVERY GASTRIC BYPASS 02/2021 PROCEDURE: MT GASTRIC RSTCV W/BYP W/SM INT RCNSTJ LIMIT ABSRPJ OTHER SURGICAL HISTORY 08/2015 PROCEDURE: HISTORY OTHER; COMMENT: abdominoplasty OTHER SURGICAL HISTORY Bilateral PROCEDURE: IMPLANT BREAST SILICONE/EQ; COMMENT: saline retropec OTHER SURGICAL HISTORY Right 11/30/2021 PROCEDURE: MT EXC BREAST LES PREOP PLMT RAD MARKER OPEN 1 LES; COMMENT: Right breast magnetic seed localized excision GYNECOLOGICAL HISTORY: OB History No obstetric history on file. SOCIAL HISTORY: Social History Tobacco Use Smoking status: Never Smokeless tobacco: Never Substance Use Topics Alcohol use: Yes FAMILY HISTORY: Family History Problem Relation Name Age of Onset Hypertension Mother diabetes Diabetes Mother Depression Mother Leukemia Mother Hypertension Father DM, [place] age mid 50s, ESRD, Glaucoma, kidney transplant, depression Diabetes Father Other (Other: heart attack) Father Breast cancer Neg Hx Ovarian cancer Neg Hx Colon cancer Neg Hx Family Status Relation Name Status Mother Alive HTN, diabetes, lipids Father HTN, diabetes, Depression, lipids Neg Hx (Not Specified) Sister Alive 1/2 sister Brother Alive sleep apnea, lipids Brother Alive sleep apnea, lipids No partnership data on file ACTIVE MEDICATIONS: No outpatient medications have been marked as taking for the 08/11/24 encounter (Consult) with Ashley Barron MD. ALLERGIES: reviewed PHYSICAL EXAM: Visit Vitals BP (!) 150/102 (BP Location: Right arm, Patient Position: Sitting, BP Cuff Size: Adult) Pulse 86 Temp 36.7 ??C (98.1 ??F) (Temporal) Ht 1.549 m (61 ) Wt 70.3 kg (155 lb) BMI 29.29 kg/m?? OB Status Postmenopausal Smoking Status Never BSA 1.69 m?? APPEARANCE: Alert and in no acute distress EYES: Conjunctiva normal and sclera normal and anicteric. NECK: Neck supple with no adenopathy. HEART: RRR, no murmurs, no gallops. LUNG: Clear to auscultation, no crackles or wheezes LYMPH NODES: No lymphadenopathy. ABDOMEN: Obese, soft, mild epigastric tender, without organomegaly or palpable masses. Umbilical Hernia EXTREMITIES: Extremities warm and well perfused without clubbing, cyanosis, or edema. SKIN: Skin color and texture normal. No rashes or lesions. NEUROLOGIC: alert and oriented LABS: reviewed ASSESSMENT: This is 53 y.o. female 4 years status post gastric bypass. Has been doing well up until her recent cervical and lumbar surgery. PLAN: Bariatric follow-up: Nutritional labs ordered. Also needs a DEXA scan since it has been over 3 years since her surgery. Avoid nsaids after gastric bypass to minimize risk of marginal ulcers. Continue Tylenol. She does have some epigastric pain. She continues to be on PPIs which should minimize her risks. GERD: Has been following up with GI. Continue same plan of antiacids, GERD diet and lifestyle modifications. We went over this again. Umbilical hernia is minimally symptomatic. For now continue observation. Went over red flags of incarceration and strangulation for which she should go to the emergency room. Diarrhea started after her most recent surgery and has been improving. Possibly postop C. difficile, or bacterial overgrowth. Her stools are now soft, and no longer watery, so cannot test for C. Difficile. Unfortunately none of the labs in our area do testing for bacterial overgrowth (carbohydrate breath test ), so we will try rifaximin empirically. HIDA scan to rule out biliary dyskinesia which could contribute to bloating and diarrhea. At risk for cholelithiasis due to significant weight loss postop. Medication and lab orders: No orders of the defined types were placed in this encounter. documented in this encounter Plan of Treatment Upcoming Encounters Date Type Department Care Team (Late st Contact Info) Description 08/19/2024 12:30 PM EDT Office Visit Adult Medicine - [place] [address] [place] [address] Mike Pagan PA [address] [place] [address] 08/22/2024 8:30 AM EDT Appointment [facility] Nuclear Medicine [address] [place] [phone] 09/26/2024 11:10 AM EDT Appointment Radiology Department [address] [address] 10/16/2024 11:00 AM EDT Office Visit Pulmonolgy - [place] [address] [phone] Archana Woods, GEOFF [address] [address] 10/29/2024 8:00 AM EDT Office Visit Gastroenterology - [place] 175 [facility] [address] [phone] Yamilka Brice, GEOFF [address] [address] Scheduled Orders Name Type Priority Associated Diagnoses Orde r Schedule CBC and differential Lab Routine S/P bariatric surgery 1 Occurrences starting 08/11/2024 until 08/11/2025 Copper, serum Lab Routine S/P bariatric surgery 1 Occurrences starting 08/11/2024 until 08/11/2025 Folate Lab Routine S/P bariatric surgery 1 Occurrences starting 08/11/2024 until 08/11/2025 Iron and TIBC Lab Routine S/P bariatric surgery 1 Occurrences starting 08/11/2024 until 08/11/2025 Selenium serum Lab Routine S/P bariatric surgery 1 Occurrences starting 08/11/2024 until 08/11/2025 Vitamin A Lab Routine S/P bariatric surgery 1 Occurrences starting 08/11/2024 until 08/11/2025 Vitamin B1 Lab Routine S/P bariatric surgery 1 Occurrences starting 08/11/2024 until 08/11/2025 Vitamin B12 Lab Routine S/P bariatric surgery 1 Occurrences starting 08/11/2024 until 08/11/2025 Vitamin B6 Lab Routine S/P bariatric surgery 1 Occurrences starting 08/11/2024 until 08/11/2025 Vitamin D 25 hydroxy Lab Routine S/P bariatric surgery 1 Occurrences starting 08/11/2024 until 08/11/2025 Zinc Lab Routine S/P bariatric surgery 1 Occurrences starting 08/11/2024 until 08/11/2025 Parathyroid hormone intact Lab Routine S/P bariatric surgery 1 Occurrences starting 08/11/2024 until 08/11/2025 NM Hepatobiliary System Imaging W Drug Imaging Routine Bloating Expected: 08/11/2024, Expires: 08/11/2025 documented as of this encounter Visit Diagnoses Diagnosis S/P bariatric surgery- Primary Bloating Flatulence, eructation, and gas pain Diarrhea, unspecified type Gastroesophageal reflux disease, unspecified whether esophagitis present Umbilical hernia without obstruction and without gangrene Encounter for screening mammogram for breast cancer documented in this encounter Care Teams Moving Worker Relationship Specialty Start Date End Date Maria Dolores Jones MD [address] [place] [address] PCP - General Internal Medicine 12/13/21 documented as of this encounter
--- OUTSIDE RECORDS SUMMARY | 2024-08-11 16:03 | XMS_ITS | Clinical Summary ---
Author Organization [facility] Address [address] [place] [id number] Care Team Providers Care Tube Depatcher Name Role Phone Unavailable Primary Care Provider [...]
--- OUTSIDE RECORDS SUMMARY | 2024-08-11 16:04 | XMS_ITS | Clinical Summary ---
Author Organization [facility] Address [address] [place] [address] Care Team Providers Care Wheat Grower Name Role Phone Unavailable Primary Care Provider Unavailabl e Source Comments PLEASE NOTE, if this patient is a minor, it may be UNLAWFUL to discuss sensitive information that is contained in these records (such as FAMILY PLANNING, MENTAL HEALTH or SUBSTANCE ABUSE) with the minor patient's parent or other person without the patient's specific authorization.[facility] Immunizations Immunization Administration Dates Next Due Moderna COVID-19 Vaccine, [...]
--- OUTSIDE RECORDS SUMMARY | 2024-08-11 16:04 | XMS_ITS | Encounter Summary ---
Author Organization [facility] Address [address] [place] [address] Care Team Providers Care Scenario Writer Name Role Phone Maria Dolores Jones MD Primary Care Provider Reason for Visit * Reason Comments Sleep Apnea Follow up for SERVANDO. Encounter Details Date Type Department Care Team ([facility] st Contact Info) Description 08/11/2024 10:50 AM EDT Office Visit Pulmonolgy - [place] [address] [place] [phone] Archana Woods NP [address] [place] [address] Social History Tobacco Use Types Packs/Day Years [...] Mass Index 29.25 08/11/2024 10:24 AM EDT documented in this encounter Plan of Treatment Upcoming Encounters Date Type Department Care Team (Late st Contact Info) Description 08/19/2024 12:30 PM EDT Office Visit Adult Medicine [facility] [address] [place] [address] Mike Pagan PA [address] [place] [address] 08/22/2024 8:30 AM EDT Appointment [facility] Nuclear Medicine [address] [place] [phone] 09/26/2024 11:10 AM EDT Appointment Radiology Department [address] [phone] 10/16/2024 11:00 AM EDT Office Visit Pulmonolgy - [place] [address] [phone] Archana Woods NP [address] [address] 10/29/2024 8:00 AM EDT Office Visit Gastroenterology - [place] 175 [facility] [address] [phone] Yamilka Brice NP [address] [address] documented as of this encounter Visit Diagnoses Not on filedocumented in this encounter Care Teams Scenario Writer Relationship Specialty Start Date End Date Maria Dolores Jones MD [address] [place] [phone] PCP - General Internal Medicine 12/13/21 documented as of this encounter
--- OUTSIDE RECORDS SUMMARY | 2024-08-11 16:04 | XMS_ITS | Encounter Summary ---
Author Organization [facility] Address [address] [place] [address] Care Team Providers Care Computer Aided Drafter Name Role Phone Maria Dolores Jones MD Primary Care Provider Encounter Details Date Type Department Care Team (Late Contact Info) Description 01/16/2024 7:30 AM EDT Hospital Encounter TH HISTORIC ENCOUNTERS [place]VERSION [place] [address] [place] [address] Social History Tobacco Use Types Packs/Day Years [...] PM EST documented as of this encounter Plan of Treatment Upcoming Encounters Date Type Department Care Team (Late Contact Info) Description 08/19/2024 12:30 PM EDT Office Visit Adult Medicine - [place] [address] [place] [phone] Mike Pagan PA [address] [place] [address] 08/22/2024 8:30 AM EDT Appointment [facility] Nuclear Medicine [address] [place] [phone] 09/26/2024 11:10 AM EDT Appointment Radiology Department - [address] [phone] 10/16/2024 11:00 AM EDT Office Visit Pulmonolgy - [place] 175 [facility] [address] [place] [phone] Archana Woods, GEOFF [address] [address] 10/29/2024 8:00 AM EDT Office Visit Gastroenterology - [place] [address] [phone] Yamilka Brice NP [address] [address] documented as of this encounter Visit Diagnoses Not on filedocumented in this encounter Care Teams Computer Aided Drafter Relationship Specialty Start Date End Date Maria Dolores Jones MD [address] [place] [address] [address] [place] [address] PCP - General Internal Medicine 12/13/21 documented as of this encounter
== END 2024-08-11 14:05 | disposition home or self-care (01) ==
LOC: HO.HNS 13:29
PROVIDERS: PCP Family Medicine; Visit Provider Physician Assistant
DX: Z98.1 Arthrodesis status (principal)
CPT/HCPCS: 99024

== ENCOUNTER → 2024-08-11 13:28 | Outpatient (BNVA) | payer OTHER, SELFPAY | PROVIDERS: PCP Family Medicine; Visit Provider Physician Assistant | DX: Z47.89 Encounter for other orthopedic aftercare (principal); Z98.1 Arthrodesis status | CPT/HCPCS: 99212 ==

== ENCOUNTER 2024-09-22 08:49 | Outpatient (REF) | payer OTHER, SELFPAY ==
--- NOTE | ~2024-09-22 | XR_ITS ---
Exam: 4 view lumbar spine. TECHNIQUE: AP, and lateral: Flexion, neutral, and extension view x-rays of the lumbar spine. INDICATION: Posterior lumbar interbody fusion Comparison May 15, 2024 FINDINGS: Again noted, there are 5 nonrib-bearing lumbar segments. Since prior examination, posterior pedicle screws and rods were placed at L4-5. Hardware is intact without abnormal lucency at bone metal interfaces. There is also interbody spacer has restored interbody height. There is no subsidence of the hardware.] Osteophytes remain evident. There are also facet osteophytes. With flexion and extension, there is no sign of instability. There is mild disc space narrowing at T12-L1 through L3-4 and L5-S1. With flexion and extension, there is no sign of instability throughout the remaining portions of the lumbar spine. There is mild degenerative sclerosis of right greater than left SI joints, inferiorly. XR/XR lumbar spine 4V min IMPRESSION: PLIF L4-5 with interbody spacer restoring interbody height. No sign of instability. Minimal degenerative changes of the lumbar spine otherwise. Electronically signed by: Homero Villaseñor MD 09/22/2024 01:07 PM EDT
--- OUTSIDE RECORDS SUMMARY | 2024-09-23 09:17 | XMS_ITS | Clinical Summary ---
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 [facility]. It has not been cleared or approved by the FDA. The laboratory is regulated under CLIA as qualified to perform high-complexity testing. This test is used for patient testing purposes. It should not be regarded as investigational or for research. Test performed at [facility], [address] , [place], [place] ??[address] ? [phone] Reema Velázquez MD, PhD - Library Clerical Assistant Blood Venous blood specimen / Unknown Venipuncture / Unknown 08/19/2024 11:41 AM EDT 08/19/2024 11:41 AM EDT us Ashley Barron MD LAB BLOOD ORDERABLES Fi nal Result [facility] [address] [place] [address] * Parathyroid hormone intact (08/19/2024 11:41 AM EDT) [facility] PTH 59.9 18.5 - 88.0 pcg/mL LAB CHEMISTRY METHOD 08/19/2024 4:02 PM EDT [facility] Blood Venous blood specimen / Unknown Venipuncture / Unknown 08/19/2024 11:41 AM EDT 08/19/2024 11:41 AM EDT us Ashley Barron MD LAB BLOOD ORDERABLES Fi nal Result Performing Organization Address [place]/[facility] [place]/ZIP Co de Phone Number [facility] [address] [place] [address], * (ABNORMAL) Folate (08/19/2024 11:41 AM EDT) [facility] Folate >20.0(H) 2.8 - 17.0 ng/ml LAB CHEMISTRY METHOD 08/19/2024 1:46 PM EDT [facility] Blood Venous blood specimen / Unknown Venipuncture / Unknown 08/19/2024 11:41 AM EDT 08/19/2024 11:41 AM EDT us Ashley Barron MD LAB BLOOD ORDERABLES Fi nal Result Performing Organization Address [facility] [place] de Phone Number [facility] [address] [place] [address], [place] [phone] * (ABNORMAL) Vitamin B12 (08/19/2024 11:41 AM EDT) [facility] Vitamin B-12 >2,000(H) 250 - 900 pcg/mL LAB CHEMISTRY METHOD 08/19/2024 1:46 PM EDT [facility] Blood Venous blood specimen / Unknown Venipuncture / Unknown 08/19/2024 11:41 AM EDT 08/19/2024 11:41 AM EDT us Ashley Barron MD LAB BLOOD ORDERABLES Fi nal Result Performing Organization Address [facility] [place] de Phone Number [facility] [address] [place] [address], [place] [phone] * External Xray Report (07/09/2024) Only the most recent of2 resultswithin the time period is included. Anatomical Region Laterality Modality Radiographic Alysha ging us Provider [facility] IMG XR PROCEDURES Final Result * Polysomnography (07/08/2024 1:42 PM EDT) Historical Provider SLEEP CENTER ORDERABLES F inal Result * Home sleep test (07/08/2024 1:41 PM EDT) Historical Provider SLEEP CENTER ORDERABLES F inal Result * Home sleep test (07/08/2024 1:40 PM EDT) Historical Provider MD SLEEP CENTER ORDERABLES F inal Result * Polysomnography (07/08/2024 1:38 PM EDT) [facility] Provider [place] SLE[facility] CENTER ORDERABLES F inal Result * Polysomnography (07/08/2024 1:37 PM EDT) Result [facility] Provider [place] SLEEP CENTER ORDERABLES F inal Result * Lipid panel with reflex to direct LDL (03/25/2024 11:54 AM EST) [facility] Signature Cholesterol 160 0 - 200 mg/dL LAB CHEMISTRY METHOD 03/25/2024 7:02 PM [facility] Triglycerides 120 0 - 150 mg/dL LAB CHEMISTRY METHOD 03/25/2024 7:02 PM [facility] HDL 58 >=40 mg/dL LAB CHEMISTRY METHOD 03/25/2024 7:02 PM [facility] LDL Calculated 78 0 - 100 mg/dL LAB CHEMISTRY METHOD 03/25/2024 7:02 PM [facility] VLDL Cholesterol Kit 24 mg/dL LAB CHEMISTRY METHOD 03/25/2024 7:02 PM [facility] Non HDL Chol. (LDL+VLDL) 102 <145 mg/dL LAB CHEMISTRY METHOD 03/25/2024 7:02 PM [facility] Chol/HDL Ratio 2.8 0.0 - 4.4 LAB CHEMISTRY METHOD 03/25/2024 7:02 PM [facility] Blood Venous blood specimen / Unknown Venipuncture / Unknown 03/25/2024 11:54 AM EST 03/25/2024 11:54 AM EST Result [facility] Mike JEAN LAB BLOOD ORDERABLES Final Re sult [facility] [address] [place] [address], * Hemoglobin A1c (03/25/2024 11:54 AM EST) [facility] Hemoglobin A1C 5.6 <6.5 % LAB CHEMISTRY METHOD 03/25/2024 6:55 PM EST [facility] Mean Bld Glu Estim. 114 mg/dL LAB CHEMISTRY METHOD 03/25/2024 6:55 PM EST [facility] Blood Venous blood specimen / Unknown Venipuncture / Unknown 03/25/2024 11:54 AM EST 03/25/2024 11:54 AM EST Mike JEAN LAB BLOOD ORDERABLES Final Re sult [facility] [address] [place] [address], * Depression Screening (01/05/2024) [facility] Depression Screening abstracted [facility] Provider HEALTH MAINTENANCE Final Result * HIV Screening (12/06/2023) [facility] HIV Screening abstracted [facility] Provider HEALTH MAINTENANCE Final Result * Hepatitis C Screening (12/06/2023) [facility] Hepatitis C Screening abstracted Historical Provider HEALTH MAINTENANCE Final Result * SCREENING MAMMOGRAPHY [...] post excisional biopsy of right breast calcifications [id number], with benign results. Study: SCREENING MAMMOGRAPHY BI [...] in 12 months. BI-RADS: Category 2: Benign Result [facility] Maria Dolores Jones MD IMG XR PROCEDURES Nita l Result * Urine Albumin Creatinine Ratio (05/03/2023) Urine Albumin Creatinine Ratio abstracted Result [facility] Historical Provider [place] HEALTH MAINTENANCE Final Result * Colonoscopy (07/13/2022) Colonoscopy no interpretation , abstracted Anatomical Region Laterality Modality Other Result [facility] Provider HEALTH MAINTENANCE Final Result * Cervical Cancer Screening: HPV (08/15/2021) Pathologist [facility] Cervical Cancer Screening: HPV no interpretation , abstracted Result [facility] Provider HEALTH MAINTENANCE Final Result from Last 3 Months or Most Recently Relevant to Health Maintenance Insurance [facility] Advance Directives * Full Code - Default [...] currently active code status orders. Care Teams Station Repairer Relationship Specialty Start Date End Date Maria Dolores Jones MD [address] [place] [address] PCP - General Internal Medicine 12/13/21
== END 2024-09-22 08:50 | disposition home or self-care (01) ==
LOC: HO.HOSX 08:49
PROVIDERS: Visit Provider Physician Assistant
DX: Z98.1 Arthrodesis status (principal)
CPT/HCPCS: 72110; 99212

== ENCOUNTER 2024-09-22 09:02 | Outpatient (AMB) | payer OTHER, SELFPAY ==
--- OUTSIDE RECORDS SUMMARY | 2024-09-22 09:22 | XMS_ITS | Clinical Summary ---
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 - 09/07/2024 PROCEDURE: Abdominal radiographs. HISTORY: flat & upright - follow up high grade SBO, hx masha en y gastricbypass. COMPARISON: 09/06/2024. FINDINGS: Enteric tube with the tip and side-port projecting in the expectedlocation of the stomach. Lung bases appear clear. Heart appearsborderline enlarged. Gaseous distention of the small bowel seen on the previous study hasresolved, and contrast is now visible throughout the colon. No abnormalgas collection. There are a few pelvic phleboliths, but no concerningcalcification. L4-5 fusion hardware. Transitional anatomy on the left at the lumbosacraljunction. Degenerative changes of the left greater than right hip andpubic symphysis. Well-positioned intrauterine device. IMPRESSION: Interval resolution of gaseous distention of the small bowel, withcontrast now evident throughout the colon. No evidence of a residualsmall bowel obstruction. -------- FINAL REPORT -------- Dictated By: Robin Cason Dictated Date: 09/07/2024 08:48 ET Assigned Physician: Robin Cason Reviewed and Electronically Signed By: Robin Cason Signed Date: 09/07/2024 08:50 ET Workstation ID: [id number] Transcribed By: Self Edit Transcribed Date: 09/07/2024 08:48 ET us Sydney JEAN IMG XR PROCEDURES Final Resul t * (ABNORMAL) Urinalysis with reflex microscopic and culture (09/06/2024 12:02 PM EDT) Specific [place] Urine >1.045(H) 1.003 - 1.030 LAB URINALYSIS - AUTOMATED METHOD 09/06/2024 1:34 PM EDT [facility] pH, Urine 6.5 5.0 - 8.0 pH LAB URINALYSIS - AUTOMATED METHOD 09/06/2024 1:34 PM EDT [facility] Leukocytes, Urine Negative Negative LAB URINALYSIS - AUTOMATED METHOD 09/06/2024 1:34 PM EDT [facility] Nitrite, Urine Negative Negative LAB URINALYSIS - AUTOMATED METHOD 09/06/2024 1:34 PM EDT [facility] Protein, Urine Trace <=Trace mg/dL LAB URINALYSIS - AUTOMATED METHOD 09/06/2024 1:34 PM T [facility] Glucose, Urine Negative Negative mg/dL LAB URINALYSIS - AUTOMATED METHOD 09/06/2024 1:34 PM [facility] Ketones, Urine Negative Negative mg/dL LAB URINALYSIS - AUTOMATED METHOD 09/06/2024 1:34 PM [facility] Urobilinogen , Urine 0.2 0.2 - 1.0 mg/dL LAB URINALYSIS - AUTOMATED METHOD 09/06/2024 1:34 PM [facility] Bilirubin, Urine Negative Negative LAB URINALYSIS - AUTOMATED METHOD 09/06/2024 1:34 PM [facility] Blood, Urine Negative Negative LAB URINALYSIS - AUTOMATED METHOD 09/06/2024 1:34 PM [facility] Urine Urine specimen obtained by clean catch procedure / Unknown Non-blood Collection / Unknown 09/06/2024 12:02 PM EDT 09/06/2024 1:29 PM EDT us Yoni JEAN LAB URINE ORDERABLES Final Resul t [facility] [address] [place] [address], [place] [phone] * Castellanos urine culture tube (09/06/2024 12:02 PM EDT) Extra Tube Hold for add-ons. 09/06/2024 3:01 PM EDT [facility] Comment:Auto resulted. Urine Urine specimen obtained by clean catch procedure / Unknown Non-blood Collection / Unknown 09/06/2024 12:02 PM EDT 09/06/2024 1:29 PM EDT us Yoni JEAN LAB URINE ORDERABLES Final Resul t [facility] [address] [place] [address], [place] [phone] * XR Abdomen 1 View (09/06/2024 8:52 AM EDT) Anatomical Region Laterality Modality Body Radiographic Alysha ging 09/06/2024 9:02 AM EDT Impressions 09/06/2024 9:04 AM EDT Well-positioned gastric tube. Dilated small bowel loops. -------- FINAL REPORT -------- Dictated By: Allan Velázquez Dictated Date: 09/06/2024 09:02 ET Assigned Physician: Allan Velázquez Reviewed and Electronically Signed By: Allan Velázquez Signed Date: 09/06/2024 09:04 ET Workstation ID: [id number] Transcribed By: Self Edit Transcribed Date: 09/06/2024 09:02 ET Narrative 09/06/2024 9:04 AM EDT INDICATION: NG/OG tube placement. FINDINGS: Single view of the upper abdomen obtained portably. Compared to study from September 05, 2024. NG/OG tube: Tube within the gastric lumen with the tip located in the left upper quadrant, well-positioned. Air-filled dilated loops of small bowel noted. Formed fecal material noted within the colon. Surgical changes in the lower lumbar spine. Excreted contrast from prior CAT scan noted within the urinary bladder which is mildly distended. IUD noted above the bladder. Procedure Note Allan Velázquez MD - 09/06/2024 INDICATION: NG/OG tube placement. FINDINGS: Single view of the upper abdomen obtained portably. Compared tostudy from September 05, 2024. NG/OG tube: Tube within the gastric lumen with the tip located in the leftupper quadrant, well-positioned. Air-filled dilated loops of small bowel noted. Formed fecal material notedwithin the colon. Surgical changes in the lower lumbar spine. Excreted contrast from prior CAT scan noted within the urinary bladderwhich is mildly distended. IUD noted above the bladder. IMPRESSION: Well-positioned gastric tube. Dilated small bowel loops. -------- FINAL REPORT -------- Dictated By: Allan Velázquez Dictated Date: 09/06/2024 09:02 ET Assigned Physician: Allan Velázquez Reviewed and Electronically Signed By: Allan Velázquez Signed Date: 09/06/2024 09:04 ET Workstation ID: [id number] Transcribed By: Self Edit Transcribed Date: 09/06/2024 09:02 ET us Paloma Brewer MD IMG XR PROCEDURES Final Result * CT Abdomen Pelvis w Contrast (09/06/2024 6:19 AM EDT) Anatomical Region Laterality Modality Body Computed Tomogra phy 09/06/2024 7:50 AM EDT Addenda Addendum by Shar Ambrosio MD on 09/06/2024 7:55 AM EDT ADDENDUM: This report was discussed with Dr. Brewer on September 06, 2024 07:54:00 EDT. This document has been electronically signed by: Natalie Calix on 09/06/2024 07:55:03 Impressions 09/06/2024 7:50 AM EDT Significantly dilated small bowel loops are seen throughout the abdomen with fecalized loops noted in the pelvis, findings compatible with high-grade small bowel obstruction. The zone of transition appears to be related to 1 of these fecalized loops in the right lower quadrant. This document has been electronically signed by: Shar Ambrosio MD on 09/06/2024 07:50:32 Narrative 09/06/2024 7:50 AM EDT INDICATION: Bowel obstruction suspected CT abdomen and pelvis with contrast Comparison: None Findings: No consolidation or effusion. Unremarkable gallbladder and solid organs. No urolithiasis. Significantly dilated small bowel loops are seen throughout the abdomen with fecalized loops noted in the pelvis, findings compatible with high-grade small bowel obstruction. The zone of transition appears to be related to 1 of these fecalized loops in the right lower quadrant. The rest of the bowel is unremarkable. There are postoperative changes related to gastric bypass surgery. Pelvic contents unremarkable. An IUD is present. The bones are intact. Procedure Note Shar Ambrosio MD - 09/06/2024 INDICATION: Bowel obstruction suspected CT abdomen and pelvis with contrast Comparison: None Findings: No consolidation or effusion. Unremarkable gallbladder and solid organs. No urolithiasis. Significantly dilated small bowel loops are seen throughout the abdomen with fecalized loops noted in the pelvis, findings compatible with high-grade small bowel obstruction. The zone of transition appears to be related to 1 of these fecalized loops in the right lower quadrant. The rest of the bowel is unremarkable. There are postoperative changes related to gastric bypass surgery. Pelvic contents unremarkable. An IUD is present. The bones are intact. IMPRESSION: Significantly dilated small bowel loops are seen throughout the abdomen with fecalized loops noted in the pelvis, findings compatible with high-grade small bowel obstruction. The zone of transition appears to be related to 1 of these fecalized loops in the right lower quadrant. This document has been electronically signed by: Shar Ambrosio MD on 09/06/2024 07:50:32 Paloma Brewer MD IM CT PROCEDURES Edited Result - Final * ECG 12 lead (09/06/2024 5:53 AM EDT) Ventricular Rate ECG 91 BPM GEMUSE Atrial Rate 91 BPM GEMUSE P-R Interval 196 ms GEMUSE QRS Duration 88 ms GEMUSE Q-T Interval 368 ms GEMUSE QTc 452 ms GEMUSE P Wave Cornelius 55 degrees GEMUSE R Cornelius -20 degrees GEMUSE T Cornelius 37 degrees GEMUSE ECG Interpretation Normal sinus rhythm When compared with ECG of 08-FEB-2021 09:21, Criteria for Septal infarct are no longer Present Confirmed by СЕРГЕЙ FARRIS ([id number]) on 09/07/2024 12:40:15 AM GEMUSE 09/06/2024 5:53 AM EDT 09/07/2024 12:40 AM EDT us Yoni JEAN ECG ORDERABLES Final Result GEMUSE * XR Abdomen 2 Views w Chest 1 View (09/05/2024 11:54 PM EDT) Anatomical Region Laterality Modality Body Radiographic Alysha ging 09/06/2024 9:34 AM EDT Impressions 09/06/2024 9:37 AM EDT Findings suspicious for mainly fluid-filled small bowel loops which may represent small bowel obstruction. No definite free air. Consider CT scan of the abdomen and pelvis for further evaluation (already performed on September 06, 2024 at 6:15 AM). No infiltrates or effusions. -------- FINAL REPORT -------- Dictated By: Allan Velázquez Dictated Date: 09/06/2024 09:34 ET Assigned Physician: Allan Velázquez Reviewed and Electronically Signed By: Allan Velázquez Signed Date: 09/06/2024 09:37 ET Workstation ID: [id number] Transcribed By: Self Edit Transcribed Date: 09/06/2024 09:34 ET Narrative 09/06/2024 9:37 AM EDT INDICATION: Abdominal pain FINDINGS: Multiple views of the abdomen were obtained with a single view of the chest. Compared to chest x-ray from February 08, 2021. Single view of the chest demonstrates Clear lung del real without infiltrates or effusions. Heart normal in size and shape. Multiple views of the abdomen including upright view demonstrate scattered air- fluid levels. No free air. Air-filled dilated small bowel loop in the left mid abdomen measuring 4.5 cm. Postoperative changes noted left upper quadrant possibly representing gastric bypass procedure. Tiny punctate densities throughout the abdomen especially on the left side in the pelvis may represent previously ingested oral contrast. Small amount of air and stool noted throughout the course of the colon. Bony structures demonstrate postoperative changes in the cervical spine and lumbar spine. IUD noted in the pelvis. Procedure Note Allan Velázquez MD - 09/06/2024 INDICATION: Abdominal pain FINDINGS: Multiple views of the abdomen were obtained with a single viewof the chest. Compared to chest x-ray from February 08, 2021. Single view of the chest demonstrates Clear lung del real withoutinfiltrates or effusions. Heart normal in size and shape. Multiple views of the abdomen including upright view demonstrate scatteredair- fluid levels. No free air. Air-filled dilated small bowel loop in theleft mid abdomen measuring 4.5 cm. Postoperative changes noted left upperquadrant possibly representing gastric bypass procedure. Tiny punctatedensities throughout the abdomen especially on the left side in the pelvismay represent previously ingested oral contrast. Small amount of air andstool noted throughout the course of the colon. Bony structures demonstrate postoperative changes in the cervical spineand lumbar spine. IUD noted in the pelvis. IMPRESSION: Findings suspicious for mainly fluid-filled small bowel loops which mayrepresent small bowel obstruction. No definite free air. Consider CT scanof the abdomen and pelvis for further evaluation (already performed on 2024 at 6:15 AM). No infiltrates or effusions. -------- FINAL REPORT -------- Dictated By: Allan Velázquez Dictated Date: 09/06/2024 09:34 ET Assigned Physician: Allan Velázquez Reviewed and Electronically Signed By: Allan Velázquez Signed Date: 09/06/2024 09:37 ET Workstation ID: [id number] Transcribed By: Self Edit Transcribed Date: 09/06/2024 09:34 ET us Paloma Brewer MD IMG XR PROCEDURES Final Result * (ABNORMAL) Lipase (09/05/2024 11:14 PM EDT) Lipase 99(H) 13 - 75 unit/L LAB CHEMISTRY METHOD 09/06/2024 12:04 AM EDT [facility] Blood Venous blood specimen / Unknown Venipuncture / Unknown 09/05/2024 11:14 PM EDT 09/05/2024 11:30 PM EDT us Yoni JEAN LAB BLOOD ORDERABLES Final Resul t [facility] [address] [place] [address], * (ABNORMAL) Comprehensive metabolic panel (09/05/2024 11:14 PM EDT) Sodium 141 133 - 145 mmol/L LAB CHEMISTRY METHOD 09/06/2024 12:05 AM [facility] Potassium 3.9 3.5 - 5.5 mmol/L LAB CHEMISTRY METHOD 09/06/2024 12:05 AM [facility] Chloride 108 96 - 110 mmol/L LAB CHEMISTRY METHOD 09/06/2024 12:05 AM [facility] CO2 23 21 - 32 mmol/L LAB CHEMISTRY METHOD 09/06/2024 12:05 AM [facility] Anion Gap 10 3 - 11 LAB CHEMISTRY METHOD 09/06/2024 12:05 AM [facility] Glucose 198(H) 70 - 100 mg/dL LAB CHEMISTRY METHOD 09/06/2024 12:05 AM [facility] BUN 21 5 - 25 mg/dL LAB CHEMISTRY METHOD 09/06/2024 12:05 AM [facility] Creatinine 0.75 0.50 - 1.10 mg/dL LAB CHEMISTRY METHOD 09/06/2024 12:05 AM [facility] eGFR 97 >=60 mL/min/1. 73m2 LAB CHEMISTRY METHOD 09/06/2024 12:05 AM [facility] Comment:Calculation based on the Chronic Kidney Disease Epidemiology Collaboration (CKD-EPI) equation refit without adjustment for race. BUN/Creatinine Ratio 28.0 LAB CHEMISTRY METHOD 09/06/2024 12:05 AM [facility] Calcium 9.9 8.5 - 10.5 mg/dL LAB CHEMISTRY METHOD 09/06/2024 12:05 AM [facility] AST (SGOT) 20 10 - 42 unit/L LAB CHEMISTRY METHOD 09/06/2024 12:05 AM EDT [facility] ALT (SGPT) 26 10 - 60 unit/L LAB CHEMISTRY METHOD 09/06/2024 12:05 AM EDT [facility] Alkaline Phosphatase 98 42 - 121 unit/L LAB CHEMISTRY METHOD 09/06/2024 12:05 AM EDT [facility] Total Protein 8.4(H) 6.0 - 8.0 g/dL LAB CHEMISTRY METHOD 09/06/2024 12:05 AM EDT [facility] Albumin 4.5 3.2 - 5.0 g/dL LAB CHEMISTRY METHOD 09/06/2024 12:05 AM EDT [facility] Total Bilirubin 0.2 0.0 - 1.4 mg/dL LAB CHEMISTRY METHOD 09/06/2024 12:05 AM EDT [facility] Blood Venous blood specimen / Unknown Venipuncture / Unknown 09/05/2024 11:14 PM EDT 09/05/2024 11:30 PM EDT Yoni JEAN LAB BLOOD ORDERABLES Final Resul t [facility] [address] [place] [address], [place] [phone] * NM Hepatobiliary System Imaging W Drug (08/22/2024 11:29 AM EDT) Anatomical Region Laterality Modality Body Nuclear Medicine 08/25/2024 9:21 AM EDT Impressions 08/25/2024 9:22 AM EDT Impression: 1. No evidence of cystic or common bile duct obstruction. 2. Normal gallbladder ejection fraction. Weston JEAN ([id number]) -------- FINAL REPORT -------- Dictated By: Jacqueline Arreola Dictated Date: 08/25/2024 09:21 ET Assigned Physician: Jacqueline Arreola Reviewed and Electronically Signed By: Jacqueline Arreola Signed Date: 08/25/2024 09:22 ET Workstation ID: [id number] Transcribed By: Self Edit Transcribed Date: 08/25/2024 09:21 ET Narrative 08/25/2024 9:22 AM EDT History: Biliary dyskinesia. Technique: Continuous anterior imaging of the abdomen was performed for 60 minutes following the intravenous administration of 4.6 mCi technetium 99m Choletec. After confirmation of bowel activity, 1.4 mcg of cholecystokinin were administered intravenously over 30 minutes. Additional imaging was performed during this time and the gallbladder ejection fraction was calculated. Findings: The initial image demonstrates a normal, homogeneous pattern of radiotracer distribution throughout the liver. Activity is seen within the bile ducts by 5 minutes, within the gallbladder by 10 minutes, and within the small bowel by 45 minutes. There is normal washout of hepatic activity. The gallbladder ejection fraction is 59 percent at 30 minutes, within the range of normal. Procedure Note Jacqueline Arreola MD - 08/25/2024 History: Biliary dyskinesia. Technique: Continuous anterior imaging of the abdomen was performed for 60minutes following the intravenous administration of 4.6 mCi technetium 99mCholetec. After confirmation of bowel activity, 1.4 mcg of cholecystokininwere administered intravenously over 30 minutes. Additional imaging wasperformed during this time and the gallbladder ejection fraction wascalculated. Findings: The initial image demonstrates a normal, homogeneous pattern ofradiotracer distribution throughout the liver. Activity is seen within thebile ducts by 5 minutes, within the gallbladder by 10 minutes, and withinthe small bowel by 45 minutes. There is normal washout of hepatic activity. The gallbladder ejection fraction is 59 percent at 30 minutes, within therange of normal. IMPRESSION: Impression: 1. No evidence of cystic or common bile duct obstruction. 2. Normal gallbladder ejection fraction. [place] ([id number]) -------- FINAL REPORT -------- Dictated By: Jacqueline Arreola Dictated Date: 08/25/2024 09:21 ET Assigned Physician: Jacqueline Arreola Reviewed and Electronically Signed By: Jacqueline Arreola Signed Date: 08/25/2024 09:22 ET Workstation ID: [id number] Transcribed By: Self Edit Transcribed Date: 08/25/2024 09:21 ET us Ashley Barron MD IMG NM PROCEDURES Final Result * (ABNORMAL) Iron and TIBC (08/19/2024 11:41 AM EDT) Iron 111 40 - 150 mcg/dL LAB CHEMISTRY METHOD 08/19/2024 1:46 PM EDT [facility] TIBC 454(H) 250 - 450 mcg/dL LAB CHEMISTRY METHOD 08/19/2024 1:46 PM EDT [facility] Iron Saturation 24 15 - 50 % LAB CHEMISTRY METHOD 08/19/2024 1:46 PM EDT [facility] Blood Venous blood specimen / Unknown Venipuncture / Unknown 08/19/2024 11:41 AM EDT 08/19/2024 11:41 AM EDT us Ashley Barron MD LAB BLOOD ORDERABLES Fi nal Result [facility] [address] [place] [address], * Copper, serum (08/19/2024 11:41 AM EDT) Copper 1267 810 - 1990 ug/L 08/22/2024 12:12 PM EDT [facility] Comment: Copper values may be elevated to twice the normal levels in . Elevated results may be due to sample collected in a non-certified trace element-free tube. This test was developed and the performance characteristics determined by [facility]. It has not been cleared or approved by the FDA. The laboratory is regulated under CLIA as qualified to perform high-complexity testing. This test is used for patient testing purposes. It should not be regarded as investigational or for research. Test performed at [facility], [address] , [place], [place] ??[address] ? [phone] Reema Velázquez MD, PhD - Shape Hand Blood Venous blood specimen / Unknown Venipuncture / Unknown 08/19/2024 11:41 AM EDT 08/19/2024 11:41 AM EDT us Ashley Barron MD LAB BLOOD ORDERABLES Fi nal Result Performing Organization Address [facility] Co de Phone Number [facility] [address] [place] [address] * Zinc (08/19/2024 11:41 AM EDT) Zinc 104 60 - 130 ug/dL 08/21/2024 12:28 PM EDT [facility] Comment: Elevated results may be due to sample collected in a non-certified trace element-free tube. This test was developed and the performance characteristics determined by [facility]. It has not been cleared or approved by the FDA. The laboratory is regulated under CLIA as qualified to perform high-complexity testing. This test is used for patient testing purposes. It should not be regarded as investigational or for research. Test performed at [facility], [address] [place], [place] ??[address] ? [phone] Reema Velázquez MD, PhD - Shape Hand Blood Venous blood specimen / Unknown Venipuncture / Unknown 08/19/2024 11:41 AM EDT 08/19/2024 11:41 AM EDT us Ashley Barron MD LAB BLOOD ORDERABLES Fi nal Result Performing Organization Address [facility] de Phone Number [facility] [address] [place] [address] * Vitamin A (08/19/2024 11:41 AM EDT) Vitamin A 60 38 - 106 ug/dL 08/22/2024 6:25 AM EDT [facility] Comment: This test was developed and the performance characteristics determined by [facility]. It has not been cleared or approved by the FDA. The laboratory is regulated under CLIA as qualified to perform high-complexity testing. This test is used for patient testing purposes. It should not be regarded as investigational or for research. Test performed at [facility], [address] [facility], [place], [place] ??[address] ? [phone] Reema Velázquez MD, PhD - Shape Hand Blood Venous blood specimen / Unknown Venipuncture / Unknown 08/19/2024 11:41 AM EDT 08/19/2024 11:41 AM EDT Ashley Barron MD LAB BLOOD ORDERABLES Fi nal Result Performing Organization Address [facility]/ZIP Co de Phone Number [facility] [address] [place] [address] * Selenium serum (08/19/2024 11:41 AM EDT) Pathologist [facility] Selenium 139 63 - 160 mcg/L 08/24/2024 12:[address] [facility] Comment: This test was developed and its analytical performance characteristics have been determined by [employer] [place] [place]. It has not been cleared or approved by the U.S. Food and Drug Administration. This assay has been validated pursuant to the CLIA regulations and is used for clinical purposes. Test Performed by [facility], [facility], [address] [place] [address] Rj Villavicencio M.D., Ph.D., Director of Laboratories , CLIA [id number] Blood Venous blood specimen / Unknown Venipuncture / Unknown 08/19/2024 11:41 AM EDT 08/19/2024 11:41 AM EDT Ashley Barron MD LAB BLOOD ORDERABLES Fi nal Result Performing Organization Address City/[facility]/ZIP Co de Phone Number [facility] [address] [place] [address] * Vitamin D 25 hydroxy (08/19/2024 11:41 AM EDT) Pathologist [facility] Vit D, 25-Hydroxy 34.4 30.0 - 80.0 ng/mL LAB CHEMISTRY METHOD 08/19/2024 4:01 PM EDT [facility] Blood Venous blood specimen / Unknown Venipuncture / Unknown 08/19/2024 11:41 AM EDT 08/19/2024 11:41 AM EDT Ashley Barron MD LAB BLOOD ORDERABLES Fi nal Result Performing Organization Address City/[facility]/ZIP Co de Phone Number [facility] [address] [place] [address], [place] [phone] * Vitamin B1 (08/19/2024 11:41 AM EDT) [facility] Vitamin B1 Whole Blood 81 38 - 122 ug/L 08/27/2024 12:24 PM EDT [facility] Comment: This test was developed and the performance characteristics determined by [facility]. It has not been cleared or approved by the FDA. The laboratory is regulated under CLIA as qualified to perform high-complexity testing. This test is used for patient testing purposes. It should not be regarded as investigational or for research. Test performed at [facility], [address] , [place], [place] ??[address] ? [phone] Reema Velázquez MD, PhD - Shape Hand Blood Venous blood specimen / Unknown Venipuncture / Unknown 08/19/2024 11:41 AM EDT 08/19/2024 11:41 AM EDT Ashley Barron MD LAB BLOOD ORDERABLES Fi nal Result Performing Organization Address City/[facility]/ZIP Co de Phone Number [facility] [address] [place] [address] * (ABNORMAL) Vitamin B6 (08/19/2024 11:41 AM EDT) [facility] Vitamin B6 (Pyridoxine) Level 55(H) 5 - 50 ug/L 08/22/2024 1:24 PM EDT [facility] Comment: This test was developed and the performance characteristics determined by [facility]. It has not been cleared or approved by the FDA. The laboratory is regulated under CLIA as qualified to perform high-complexity testing. This test is used for patient testing purposes. It should not be regarded as investigational or for research. Test performed at [facility], [address] , [place], [place] ??[address] ? [phone] Reema Velázquez MD, PhD - Shape Hand Blood Venous blood specimen / Unknown Venipuncture / Unknown 08/19/2024 11:41 AM EDT 08/19/2024 11:41 AM EDT us Ashley Barron MD LAB BLOOD ORDERABLES Fi nal Result Performing Organization Address City/[facility] Co de Phone Number [facility] [address] [place] [address] * Parathyroid hormone intact (08/19/2024 11:41 AM EDT) PTH 59.9 18.5 - 88.0 pcg/mL LAB CHEMISTRY METHOD 08/19/2024 4:02 PM EDT [facility] Blood Venous blood specimen / Unknown Venipuncture / Unknown 08/19/2024 11:41 AM EDT 08/19/2024 11:41 AM EDT us Ashley Barron MD LAB BLOOD ORDERABLES Fi nal Result Performing Organization Address City/[facility]/ZIP Co de Phone Number [facility] [address] [place] [address], [place] [phone] * (ABNORMAL) Folate (08/19/2024 11:41 AM EDT) Folate >20.0(H) 2.8 - 17.0 ng/ml LAB CHEMISTRY METHOD 08/19/2024 1:46 PM EDT [facility] Blood Venous blood specimen / Unknown Venipuncture / Unknown 08/19/2024 11:41 AM EDT 08/19/2024 11:41 AM EDT Ashley Barron MD LAB BLOOD ORDERABLES Fi nal Result Performing Organization Address [facility]/ZIP Co de Phone Number [facility] [address] [place] [address], [place] [phone] * (ABNORMAL) Vitamin B12 (08/19/2024 11:41 AM EDT) [facility] Vitamin B-12 >2,000(H) 250 - 900 pcg/mL LAB CHEMISTRY METHOD 08/19/2024 1:46 PM EDT [facility] Blood Venous blood specimen / Unknown Venipuncture / Unknown 08/19/2024 11:41 AM EDT 08/19/2024 11:41 AM EDT Result [facility] Ashley Barron MD LAB BLOOD ORDERABLES Fi nal Result Performing Organization Address [facility] de Phone Number [facility] [address] [place] [address], [place] [phone] * External Xray Report (07/09/2024) Only the most recent of2 resultswithin the time period is included. Anatomical Region Laterality Modality Radiographic Alysha ging Provider [facility] IM[facility] XR PROCEDURES Final Result * Polysomnography (07/08/2024 1:42 PM EDT) Historical Provider SLEEP CENTER ORDERABLES F inal Result * Home sleep test (07/08/2024 1:41 PM EDT) Historical Provider SLEEP CENTER ORDERABLES F inal Result * Home sleep test (07/08/2024 1:40 PM EDT) us Historical Provider SLEEP CENTER ORDERABLES F inal Result * Polysomnography (07/08/2024 1:38 PM EDT) [facility] Provider [facility] SLEEP CENTER ORDERABLES F inal Result * Polysomnography (07/08/2024 1:37 PM EDT) [facility] Provider [facility] SLEEP CENTER ORDERABLES F inal Result * Lipid panel with reflex to direct LDL (03/25/2024 11:54 AM EST) [facility] Signature Cholesterol 160 0 - 200 mg/dL LAB CHEMISTRY METHOD 03/25/2024 7:02 PM [facility] Triglycerides 120 0 - 150 mg/dL LAB CHEMISTRY METHOD 03/25/2024 7:02 PM [facility] HDL 58 >=40 mg/dL LAB CHEMISTRY METHOD 03/25/2024 7:02 PM [facility] LDL Calculated 78 0 - 100 mg/dL LAB CHEMISTRY METHOD 03/25/2024 7:02 PM [facility] VLDL Cholesterol Kit 24 mg/dL LAB CHEMISTRY METHOD 03/25/2024 7:02 PM [facility] Non HDL Chol. (LDL+VLDL) 102 <145 mg/dL LAB CHEMISTRY METHOD 03/25/2024 7:02 PM [facility] Chol/HDL Ratio 2.8 0.0 - 4.4 LAB CHEMISTRY METHOD 03/25/2024 7:02 PM [facility] Blood Venous blood specimen / Unknown Venipuncture / Unknown 03/25/2024 11:54 AM EST 03/25/2024 11:54 AM EST Mike JEAN LAB BLOOD ORDERABLES Final Re sult [facility] [address] [place] [address], [place] [phone] * Hemoglobin A1c (03/25/2024 11:54 AM EST) Hemoglobin A1C 5.6 <6.5 % LAB CHEMISTRY METHOD 03/25/2024 6:55 PM EST [facility] Mean Bld Glu Estim. 114 mg/dL LAB CHEMISTRY METHOD 03/25/2024 6:55 PM EST [facility] Blood Venous blood specimen / Unknown Venipuncture / Unknown 03/25/2024 11:54 AM EST 03/25/2024 11:54 AM EST Mike JEAN LAB BLOOD ORDERABLES Final Re sult [facility] [address] [place] [address], * Depression Screening (01/05/2024) Depression Screening abstracted Historical Provider MD HEALTH MAINTENANCE Final Result * HIV Screening (12/06/2023) Pathologist [facility] HIV Screening abstracted [facility] Provider MD HEALTH MAINTENANCE Final Result * Hepatitis C Screening (12/06/2023) Pathologist [facility] Hepatitis C Screening abstracted [facility] Provider MD HEALTH MAINTENANCE Final Result * [...] post excisional biopsy of right breast calcifications onNovember 30, 2021, with benign results. Study: SCREENING [...] * Urine Albumin Creatinine Ratio (05/03/2023) Pathologist [facility] Urine Albumin Creatinine Ratio abstracted Historical Provider HEALTH MAINTENANCE Final Result * Colonoscopy (07/13/2022) [facility] Colonoscopy no interpretation , abstracted Anatomical Region Laterality Modality Other Historical Provider HEALTH MAINTENANCE Final Result * Cervical Cancer Screening: HPV (08/15/2021) [facility] Cervical Cancer Screening: HPV no interpretation , abstracted Historical Provider HEALTH MAINTENANCE Final Result from Last 3 Months or Most Recently Relevant to Health Maintenance Insurance [facility] Advance Directives * Full Code - Default (Latest Code Status on File) Date Activated Date Inactivated Comments 09/06/2024 9:10 AM 09/08/2024 1:59 PM This is orde r is used when code status has not been discussed with the patient, or code status is otherwise unknown/unconfirmed To update the patient's code status, place a code status order. Do not modify or discontinue any currently active code status orders. Care Teams Automotive Mechanical Engineer Relationship Specialty Start Date End Date Maria Dolores Jones MD [address] [place] [id number] PCP - General Internal Medicine 12/13/21
--- NOTE | 2024-09-22 09:37 | A.SPINEOV_ITS ---
Intake Visit Reasons: 2nd post op with xrays Intake Note: Ms. Hernandez is here today for her 2nd post op with xrays. Applications Administrator Required: No Allergies erythromycin base Allergy (Severe, Verified 08/11/24 13:30) gastritis nickel Allergy (Severe, Verified 08/11/24 13:30) skin erosion shrimp Allergy (Severe, Verified 08/11/24 13:30) Itchy throat Assessment & Plan Assessment & Plan (1) S/P spinal fusion: Code(s): Z98.1 - Arthrodesis status Category: Surgical Plan Procedure: L4-5 OLIF Christy is a pleasant 53 year old female who comes in today for her 1st postoeprative visit after having L4-[address] Albrecht 07/09/24. Overall she has been healing fairly well since her surgery, and reports that her back pain has significantly improved. She does report that she has some continued what sounds like musculoskeletal pain over her right hip, low back, and left side of her posterior neck. We discussed the postoperative healing course during this visit, and I answered all the questions that she had. In addition to this we reviewed her x-ray images from her visit today together, they show stable placement of her surgical construct with no notable changes from fluoroscopy. No new neurological deficits. The patient ambulates well and rises from a s eated position without difficulty. I would like to follow up with the patient again 1 year out from surgery. I will place a CT scan to be completed 10 months out from surgery. In addition to this, we will be sending her for a course of physical therapy. Alfie Albrecht MD,PhD [facility] Orders: Orders XR lumbar spine 4V min Today Z98.1 - Arthrodesis status PT Evaluation and Treatment Today Z98.1 - Arthrodesis status Coding Level of Care Code Global (65585) Diagnoses S/P spinal fusion Z98.1
== END 2024-09-22 09:48 | disposition home or self-care (01) ==
LOC: HO.HNS 09:03
PROVIDERS: PCP Family Medicine; Visit Provider Physician Assistant
DX: Z98.1 Arthrodesis status (principal)
CPT/HCPCS: 99024

== ENCOUNTER → 2024-09-22 09:08 | Outpatient (BNV) | payer OTHER, SELFPAY | PROVIDERS: Visit Provider Radiology Diagnostic Radiology | DX: M51.369 Other intervertebral disc degeneration, lumbar region without mention of lumbar back pain or lower extremity pain (principal) | CPT/HCPCS: 72110 ==